=== PATIENT | female | born 1995 | race Caucasian/White ===

== ENCOUNTER 2023-08-12 14:46 | Outpatient (AMB) | payer OTHER, SELFPAY ==
--- NOTE | 2023-08-12 15:17 | AM.OFFWIN_ITS ---
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 Was not present all winter but has since returned about a month ago Endorses clear watery discharge from the area She has been applying triamcinolone ointment without improvement Denies fevers, chills, nausea, vomiting, diarrhea, headache, dizziness, weakness Review of Systems Const All systems reviewed & are unremarkable except as noted in HPI and below Physical Exam Vital Signs: Last Vital Signs Pulse 80 08/12/23 15:24 BP 126/82 08/12/23 15:24 Pulse Ox 99 08/12/23 15:24 Oxygen Delivery Method Room Air 08/12/23 15:24 BMI result Body Mass Index 24.1 General: awake, alert, oriented. Answers questions appropriately. Fully engaged in examination. Skin: warm, dry, intact HEENT: Normocephalic. Right retroauricular area: dry, flaking red patches, yellow crusty flakes Cardiac: External chest normal in appearance. Respiratory: No cough, audible wheezing or stridor. Abdomen: without gross distension. Soft, nontender. No guarding MS: No obvious swelling or deformities. Neurological: Oriented to person, place, time and situation. Thought process intact. Psychiatric: Appropriate mood and affect. Good judgment and insight. Assessment & Plan Assessment & Plan (1) Dermatitis: Code(s): L30.9 - Dermatitis, unspecified Plan Ketoconazole 2% topical. Apply twice daily as directed Follow up with dermatology if no improvement Follow up with PCP or return here for any new or worsening symptoms Medications: New ketoconazole 2% Apply a thin layer to affected area with fingertips. Do not wash affected area for at least 3 hours after application; wait at least 20 minutes after hao lication before applying makeup or sunscreen to the treated areas. 1 appl topical BID 30 grams 1RF Coding Level of Care Code Est Pt Level 3 (85073) Diagnoses Dermatitis L30.9
[2023-08-12 15:24] VITALS: BP 126/82; PULSE 80; O2SAT 99; BMI 24.1
== END 2023-08-12 16:11 | disposition home or self-care (01) ==
PROVIDERS: Visit Provider Registered Nurse Emergency
DX: L30.9 Dermatitis, unspecified (principal)
CPT/HCPCS: 99213

== ENCOUNTER 2024-04-21 14:50 | Outpatient (REF) | payer OTHER, SELFPAY ==
[2024-04-21 16:18] LABS: Appearance Urine Clear; Color Urine Yellow; Glucose Urine UA Negative (Negative); Leukocyte Esterase Urine Negative (Negative); Nitrite Urine Negative (Negative); PH 5.5 (5.0-9.0); Specific Gravity - Urine 1.025 (1.005-1.025); Urine Blood Negative (Negative); Urine Ketones Negative (Negative); Urine Protein Negative (Neg-Trace)
[2024-04-21 16:52] LABS: Bacteria Urine None Seen (None Seen); Hyaline Casts Urine 0-2 /LPF (0-2); RBC Urine 0-2 /HPF (0-2); Squamous Epithelial Cell Urine 0-2 /HPF (0-2); WBC Urine 0-5 /HPF (0-5)
== END 2024-04-21 14:51 | disposition home or self-care (01) ==
LOC: HO.HMGCLNP 14:50
PROVIDERS: PCP Internal Medicine; Visit Provider Internal Medicine
DX: R30.0 Dysuria (principal)
CPT/HCPCS: 81001; 87086

== ENCOUNTER 2024-04-22 16:05 | Outpatient (REF) | payer OTHER, SELFPAY ==
--- NOTE | ~2024-04-22 | US_ITS ---
EXAMINATION: US PELVIS CLINICAL INFORMATION: Right pelvic pain COMPARISON: None available. TECHNIQUE: Ultrasound of the pelvis is performed using both transabdominal and transvaginal transducers along with Doppler. Transvaginal imaging is performed due to inadequate visualization transabdominally. FINDINGS: Uterus: The uterus is anteverted, anteflexed and measures 8.8 x 3.0 x 3.8 cm. The double wall endometrial thickness is 2.0 mm. The uterus is smooth in contour and has normal myometrial echogenicity. No visible fibroid. Adnexa: Both ovaries are visualized. There is normal color flow to the adnexa. There is no ovarian torsion. There is no pelvic ascites or fluid collection. Right ovary measures 7.6 x 4.9 x 8.2 . There is simple anechoic cyst measuring 7.2 x 4.5 x 7.7 cm. Left ovary measures 3.6 x 1.9 x 2.0 cm. Volume 6.9 mL. It appears unremarkable. US/US pelvic and transvaginal IMPRESSION: Simple right ovarian cyst. Unremarkable left ovary and uterus. Electronically signed by: Bairon Harris MD 04/23/2024 07:14 AM EST
== END 2024-04-22 16:06 | disposition home or self-care (01) ==
LOC: HO.US 16:05
PROVIDERS: PCP Internal Medicine; Visit Provider Internal Medicine
DX: R10.2 Pelvic and perineal pain (principal)
CPT/HCPCS: 76830; 76856

== ENCOUNTER → 2024-04-22 16:09 | Outpatient (BNV) | payer OTHER, SELFPAY | PROVIDERS: PCP Internal Medicine; Visit Provider Radiology Diagnostic Radiology | DX: N83.201 Unspecified ovarian cyst, right side (principal) | CPT/HCPCS: 76830; 76856 ==

== ENCOUNTER 2024-04-23 08:07 | Outpatient (REF) | payer OTHER, SELFPAY ==
[2024-04-23 19:23] LABS: Bacterial Vaginosis PCR NEGATIVE (Negative); Candida Group PCR NOT DETECTED (Not Detect); Candida glab krusei PCR NOT DETECTED (Not Detect); Trichomonas vaginalis PCR NOT DETECTED (Not Detect)
== END 2024-04-23 08:08 | disposition home or self-care (01) ==
LOC: HO.LAB 08:07
PROVIDERS: PCP Internal Medicine; Visit Provider Advanced Practice Midwife
DX: N89.8 Other specified noninflammatory disorders of vagina (principal)
CPT/HCPCS: 81515

== ENCOUNTER 2024-04-23 08:07 | Outpatient (AMB) | payer OTHER, SELFPAY ==
--- NOTE | 2024-04-23 08:10 | MHC.OFFVIS ---
Intake Visit Reasons: pelvic pain Product Support Technician: Product Support Technician Present (Amie) Allergies amoxicillin Allergy (Verified 04/23/24 08:17) Hives HPI Comments Details: Patient presents to the office this morning with concerns of a ongoing lower right side pelvic pain 5/10 pain level for the last 5 days. She reports she has a high tolerance to pain. Recent ultrasound ordered by her primary care reviewed. Urinalysis and culture were negative 04/21/24. Current OCP user. [facility] Medical History (Updated 04/23/24 @ 16:07 by Eva Valentin CNM) Ovarian cyst Review of Systems Const All systems reviewed & are unremarkable except as noted in HPI and below Physical Exam Const General: cooperative, healthy appearing and no acute distress Orientation/consciousness: patient oriented x3 GI Inspection: Yes normal to inspection Palpation (GI): Soft to palpation and Other GI palpation findings present (Nontender) Rectal Exam - Female: visual inspection normal General: Yes bladder normal to palpation External Female Exam: normal appearance of the urethra Speculum Exam - Vagina: normal appearance of the vagina, normal palpation and normal vaginal discharge Speculum Exam - Cervix: normal appearance of the cervix and normal palpation Bimanual exam- vagina & uterus: normal bimanual exam, normal palpation, uterine size normal, bladder normal to palpation, normal palpation, uterine shape normal and non-tender Bimanual Exam- Adnexa, other: tender (Fullness on right side) on the right Neuro General: patient oriented x3 Results Reviewed Results Reviewed: [place] [id number] Ultrasound Report Signed Patient: Chelsea Higgins MR#: [id number] : 1995 Acct:[id number] Age/Sex: 29 / F ADM Date: 04/22/24 Loc: HO.US Attending Dr: Susanna Sheffield MD Ordering Physician: Susanna Sheffield MD Date of Service: 04/22/24 Procedure(s): US pelvic and transvaginal Accession Number(s): [id number] cc: Susanna Sheffield MD~ EXAMINATION: US PELVIS CLINICAL INFORMATION: Right pelvic pain COMPARISON: None available. TECHNIQUE: Ultrasound of the pelvis is performed using both transabdominal and transvaginal transducers along with Doppler. Transvaginal imaging is performed due to inadequate visualization transabdominally. FINDINGS: Uterus: The uterus is anteverted, anteflexed and measures 8.8 x 3.0 x 3.8 cm. The double wall endometrial thickness is 2.0 mm. The uterus is smooth in contour and has normal myometrial echogenicity. No visible fibroid. Adnexa: Both ovaries are visualized. There is normal color flow to the adnexa. There is no ovarian torsion. There is no pelvic ascites or fluid collection. Right ovary measures 7.6 x 4.9 x 8.2 . There is simple anechoic cyst measuring 7.2 x 4.5 x 7.7 cm. Left ovary measures 3.6 x 1.9 x 2.0 cm. Volume 6.9 mL. It appears unremarkable. US/US pelvic and transvaginal IMPRESSION: Simple right ovarian cyst. Unremarkable left ovary and uterus. Electronically signed by: Bairon Harris MD 04/23/2024 07:14 AM [facility] Dictated By: Bairon Harris MD Signed By: <Electronically signed by Bairon Harris MD in OV> 04/23/24 0714 DD/ 1626 TD/TT: 04/22/24 1638 Screening Representative: MELODY Assessment & Plan Assessment & Plan (1) Ovarian cyst: Code(s): N83.209 - Unspecified ovarian cyst, unspecified side Category: Medical Qualifiers: Laterality: right Qualified Code(s): N83.201 - Unspecified ovarian cyst, right side (2) Pelvic pain: Code(s): R10.2 - Pelvic and perineal pain Category: Medical Plan Reviewed ultrasound discussed large ovarian cyst findings on the right, risk of ovarian torsion need for evaluation at [facility] now, no current marketing database coordinator [place] [facility] [place]. BV panel obtained. Declined GC chlamydia. The patient expressed understanding and agreement with the plan of care. All of her questions and concerns were addressed to the best of my ability. This note is constructed using voice recognition software. While every effort has been made to ensure accuracy, marketing database coordinator errors may have been included. Orders: Orders Bacterial Vaginosis Panel Today N89.8 - Other specified noninflammatory disorders of vagina Coding Level of Care Code New Pt Level 3 (66874) Diagnoses Cyst of right ovary N83.201 Laterality: right Pelvic pain R10.2
== END 2024-04-23 08:34 | disposition home or self-care (01) ==
LOC: HO.HWS 08:07
PROVIDERS: PCP Internal Medicine; Visit Provider Advanced Practice Midwife
DX: N83.201 Unspecified ovarian cyst, right side (principal); R10.2 Pelvic and perineal pain
CPT/HCPCS: 99203; 99459

== ENCOUNTER 2024-04-29 13:12 | Outpatient (AMB) | payer OTHER, SELFPAY ==
--- NOTE | 2024-04-29 13:13 | MHC.OFFWIV ---
Intake Vital Signs 04/29/24 13:17 BP 120/82 Blood Pressure Location Rt brachial Position Sitting Pulse 112 H Pulse Source Pulse Oximeter Temp 98.7 F Temp Source Oral Pulse Oximetry (%) 98 Oxygen Delivery Method Room Air Intake Visit Reasons: EP-flu symptoms Intake Note: Patient here for dry cough, sore throat, fevers, headache that started yesterday. She was recently in the hospital and her boyfriend just tested positive for the Flu Patient Tobacco Use Status: Never used Tobacco Allergies amoxicillin Allergy (Verified 04/29/24 13:17) Hives Do you need a note to return to daycare/school/sports/work: Yes HPI HPI Comments History of Present Illness Details She presents to office for flu symptoms She had ovaria surgery on ; healing well Was with significant other and her boyfriend + flu A since Saturday Onset yesterday + dry cough, scratchy throat, fever, headache and body aches No call to surgeon Normal urination, incisions looks good Currently menstuation She has taken Ibuprofen at baseline. Did oxycodone for 2 night. No CP or SOB PFSH Medical History (Updated 04/29/24 @ 13:48 by Chelsea Chaparro PA-C) Ovarian cyst Social History Patient Tobacco Use Status: Never used Tobacco Review of Systems Const Reports body aches, Reports chills, Reports fatigue, Reports fever(s), Reports headache(s) and Reports poor appetite Eyes Denies change in vision ENT Denies dizziness, Reports headache(s), Reports nasal congestion and Reports sore throat Card Denies chest pain, Denies syncope and Denies dyspnea Resp Reports cough and Denies dyspnea GI Denies abdominal pain, Denies constipation, Denies diarrhea, Denies nausea and Denies vomiting Denies dysuria and Denies urinary urgency Musc Reports myalgias Skin/Breast Reports other (incisions healing well) Neuro Denies dizziness, Denies syncope and Reports headache(s) Endo Reports fatigue Physical Exam Vital Signs: Last Vital Signs Temp 98.7 F 04/29/24 13:17 Pulse 112 H 04/29/24 13:17 BP 120/82 04/29/24 13:17 Pulse Ox 98 04/29/24 13:17 Oxygen Delivery Method Room Air 04/29/24 13:17 General: Non-toxic, NAD. Speaking full sentences. Skin: Warm dry throughout Eye: EOMI HENT: Airway patent. Uvula midline. No pharyngeal erythema or edema. 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 +rhinorrhea Bilateral canals clear. TM non-erythematous, non-bulging. No TM perforation or hemotympanum noted. Respiratory: CTA bilaterally. No wheezes, rales or rhonchi Cardiac: tachycardic. No murmur Abdomen: Abdomen non-distended. Surigical incisions dry, without wound dehiscence or erythema. BS present. Non-tender to light palpation MSK: Full ROM extremities. Neurology: Alert. No aphasia or facial droop. Gait without abnormality Psych: Good mood and affect Assessment & Plan Assessment & Plan (1) Influenza-like illness: Code(s): J11.1 - Influenza due to unidentified influenza virus with other respiratory manifestations Plan: Patient seen and evaluated. Lungs CTA Abdomen is soft, non-distended and not acute Influenza, flu and covid swab obtained Tylenol/Ibuprofen for discomfort Increase fluids and bland diet Patient gave verbal understanding and had no additional questions or concerns at time of discharge All questions answered Coding Level of Care Code Est Pt Level 3 (40845) Diagnoses Influenza-like illness J11.1
[2024-04-29 13:17] VITALS: BP 120/82; PULSE 112; TEMP 37.1; O2SAT 98
--- OUTSIDE RECORDS SUMMARY | 2024-04-29 15:18 | XMS_ITS | Continuity of Care Document ---
Author Organization [facility] ter Address [address] [place] [id number]- Care Team Providers [employer] Manager Name Role Phone Nettie RESTREPO, Susanna Villar Primary Care Physician Encounter [facility] Date(s): 04/23/24 - 04/24/[address] [id number] Encounter Diagnosis Other ovarian cyst, right side(Final) - 04/23/24 Discharge Disposition: A-D/C Home Attending Physician: Moreno RESTREPO, Jarred Moreno Admitting Physician: Jarred Mayer MD Referring Physician: Not on Staff, Referring MD Encounter Type: Disch Obv Allergies, Adverse Reactions, Alerts Substance Criticality Severity Reaction Reaction Severity Status amoxicillin Hives Active Immunizations Given and Recorded Vaccine Date Status Refusal Reason SARS-CoV-2 (COVID-19) mRNA-1273 vaccine 02/01/21 R ecorded SARS-CoV-2 (COVID-19) mRNA-1273 vaccine 04/25/20 R ecorded SARS-CoV-2 (COVID-19) mRNA-1273 vaccine 03/28/20 R ecorded influenza virus vaccine, inactivated 01/17/21 Cristian rded hepatitis B pediatric vaccine 04/07/15 Recorded Medications acetaminophen 325 mg oral capsule 2 capsule = 650 mg, By Mouth, Every 6 hours, PRN as needed for pain, For acute cause, 90 day supplynot indicated not to exceed 4000 mg/day, # 60 capsule, 0 Refills, Acute 06/26/24 9:00:00 PM EDT, 04/23/24 8:49:00 PM EST, Capsule, [facility]/pharmacy #[id number], Partial fill upon patient request if the prescription is for a schedule II opioid drug., 165, cm, 04/23/24 20:21:00 EST, Height, 68.5, kg, 04/23/24 17:26:00 EST, Dry Weight Start Date: 04/23/24 Stop Date: 06/26/24 Status: Ordered Quantity: 60.0 Unit: capsule Repeat number: 1 acetaminophen 500 mg oral capsule 2 capsule = 1,000 mg, By Mouth, Every 6 hours, PRN for fever, not to exceed 4000 mg/day, # 30 capsule, 0 Refills, Maintenance, 10/30/19 6:10:00 AM EDT, Capsule, [facility], 165, cm, 10/30/19 2:45:00 EDT, Height, 63.4, kg, 10/30/19 2:45:00 EDT, Dry Weight Start Date: 10/30/19 Status: Ordered Quantity: 30.0 Unit: capsule Repeat number: 1 busPIRone 15 mg oral tablet 1 tablet = 15 mg, By Mouth, 2 times a day, 0 Refills, Maintenance, 10/30/19 2:47:00 AM EDT Start Date: 10/30/19 Status: Ordered Repeat number: 1 docusate sodium 100 mg oral capsule 100 mg, 1, capsule, By Mouth, 2 times a day, PRN, # 60 capsule, Refills 0, Tot. Refills 0, Maintenance, for constipation, 04/23/24 8:50:00 PM EST, Route to Pharmacy Electronically, [facility]/pharmacy #[id number],Partial fill upon patient request if the prescription is for a schedule II opioid drug., 165, cm, 04/23/24 20:21:00 EST, Height, 68.5, kg, 04/23/24 17:26:00 EST, Dry Weight Start Date: 04/23/24 Status: Ordered Quantity: 60.0 Unit: capsule Repeat number: 1 ibuprofen 600 mg oral tablet 600 mg, 1, tablet, By Mouth, Every 6 hours, PRN, For acute cause, 90 day supply not indicated not to exceed 3200 mg/day with food or milk, # 60 tablet, Refills 0, Tot. Refills 0, Acute 06/26/24 9:00:00 PM EDT, Pain , Mild, 04/23/24 8:49:00 PM EST, [facility]ically[id number] fill upon patient request if the prescription is for a schedule II opioid drug., 165, cm, 04/23/24 20:21:00 EST, Height, 68.5, kg, 04/23/24 17:26:00 EST, Dry Weight Start Date: 04/23/24 Stop Date: 06/26/24 Status: Ordered Quantity: 60.0 Unit: tablet Repeat number: 1 ibuprofen 600 mg oral tablet 600 mg, 1, tablet, By Mouth, Every 6 hours, PRN, not to exceed 3200 mg/day with food or milk, # 20 tablet, Refills 0, Tot. Refills 0, Maintenance, Temperature, 10/30/19 6:09:00 AM EDT, Route to Pharmacy Electronically, [facility], 165, cm, 10/30/19 2:45:00 EDT, Height, 63.4, kg, 10/30/19 2:45:00 EDT, Dry Weight Start Date: 10/30/19 Status: Ordered Quantity: 20.0 Unit: tablet Repeat number: 1 oxyCODONE 5 mg oral tablet See Instructions, PRN, 1 tablet By Mouth Every 6 hours prn pain that is not controlled by Ibuprofenand acetaminophen, # 7 tablet, Refills 0, Tot. Refills 0, Acute 05/29/24 9:00:00 PM EST, as needed for pain, 04/23/24 8:49:00 PM EST, Instructions Replace Required Details, [facility], [id number], Partial fill upon patient request if the prescription is for a schedule IIopioid drug., 165, cm, 04/23/24 20:21:00 EST, Height, 68.5, kg, 04/23/24 17:26:00 EST, Dry Weight Start Date: 04/23/24 Stop Date: 05/29/24 Status: Ordered Quantity: 7.0 Unit: tablet Repeat number: 1 sertraline 100 mg oral tablet 2 tablet = 200 mg, By Mouth, Daily, 0 Refills, Maintenance, 10/30/19 2:46:00 AM EDT Start Date: 10/30/19 Status: Ordered Repeat number: 1 Toradol Inj 15 mg, Injection, IV Push Slowly, 04/24/24 12:00:00 AM EST, Stop date 04/24/24 1:26:42 AM EST Start Date: 04/24/24 Stop Date: 04/24/24 Status: Completed Repeat number: 1 Tri-Sprintec oral tablet 1 tablet, By Mouth, Daily, # 28 tablet, 0 Refills, Maintenance, 08/12/18 5:10:10 PM EDT, Tablet Start Date: 08/12/18 Status: Ordered Quantity: 28.0 Unit: tablet Repeat number: 1 Problem List Condition Confirmation Course Effective Dates Status Health St atus Informant Anxiety Confirmed Active Galactorrhea Confirmed Active OCD (obsessive compulsive disorder) Confirmed Active Results Radiology Reports * Exam Date Time Procedure Performing Provider Status 04/23/24 1:41 PM US Pelvic Doppler Comp Vilma Bingtano e; Auth (Verified) Notes: (US Pelvic Doppler Comp) Reason For Exam: Pelvic Pain;Other: RESULT: US Pelvic Doppler Comp US Pelvic Transabdominal, US Pelvic Transvaginal, US Pelvic Doppler Comp Hx of Present Illness: lower abd pain + bilat ovarian cyst per US that was done today; Reason: Pelvic Pain; Clinical Question(s): TOA. Patient reports ultrasound performed at an outside facility demonstrated a greater than 7 cm right ovarian cyst. COMPARISON: 10/11/2022. TECHNIQUE: Transabdominal and transvaginal pelvic ultrasound with grayscale, color Doppler, and spectral Doppler analysis. FINDINGS: UTERUS: Size: 8.7 x 3.0 x 5.0 cm, volume 69.0 cc. Endometrial thickness: 0.3 cm. Morphology: Normal configuration and echotexture. RIGHT OVARY: Size: 8.2 x 6.4 x 7.7 cm, volume 209.3 cc. Morphology: Large cyst measuring 7.6 x 6.0 x 7.1 cm. Normal arterial and venous waveforms identified in the peripheral ovary. LEFT OVARY: Size: 3.1 x 1.8 x 2.4 cm, volume 7.2 cc. Morphology: Normal echotexture. No pathologic cysts or mass. Normal arterial and venous waveforms. ADNEXA: Normal. No adnexal masses or fluid collections. IMPRESSION: Right ovarian cyst measuring up to 7.6 cm. O-RADS Category 2 (Almost certainly benign). Recommend follow-up US in 12 months or earlier as directed by clinical factors. Reference: ACR O-RADS US v2022. https://pubs.rsna.org/doi/10.1148/radiol.334409 Normal uterus and left ovary. WSN: [id number] Ordering Physician: Raphael Valencia Dictated By: John Fonseca MD Dictated Date/Time: 04/23/24 2:23 pm Reviewed By: John Fonseca MD Signed By: John Fonseca MD Signed Date/Time: 04/23/24 2:23 pm Transcribed By: LORI Transcribed Date/Time: 04/23/24 2:06 pm * Exam Date Time Procedure Performing Provider Status 04/23/24 1:41 PM US Pelvic Transvaginal Horn , Catherin e; Auth (Verified) Notes: (US Pelvic Transvaginal) Reason For Exam: Pelvic Pain;Other: RESULT: US Pelvic Transvaginal US Pelvic Transabdominal, US Pelvic Transvaginal, US Pelvic Doppler Comp Hx of Present Illness: lower abd pain + bilat ovarian cyst per US that was done today; Reason: Pelvic Pain; Clinical Question(s): TOA. Patient reports ultrasound performed at an outside facility demonstrated a greater than 7 cm right ovarian cyst. COMPARISON: 10/11/2022. TECHNIQUE: Transabdominal and transvaginal pelvic ultrasound with grayscale, color Doppler, and spectral Doppler analysis. FINDINGS: UTERUS: Size: 8.7 x 3.0 x 5.0 cm, volume 69.0 cc. Endometrial thickness: 0.3 cm. Morphology: Normal configuration and echotexture. RIGHT OVARY: Size: 8.2 x 6.4 x 7.7 cm, volume 209.3 cc. Morphology: Large cyst measuring 7.6 x 6.0 x 7.1 cm. Normal arterial and venous waveforms identified in the peripheral ovary. LEFT OVARY: Size: 3.1 x 1.8 x 2.4 cm, volume 7.2 cc. Morphology: Normal echotexture. No pathologic cysts or mass. Normal arterial and venous waveforms. ADNEXA: Normal. No adnexal masses or fluid collections. IMPRESSION: Right ovarian cyst measuring up to 7.6 cm. O-RADS Category 2 (Almost certainly benign). Recommend follow-up US in 12 months or earlier as directed by clinical factors. Reference: ACR O-RADS US v2022. https://pubs.rsna.org/doi/10.1148/radiol.731648 Normal uterus and left ovary. WSN: [id number] Ordering Physician: Raphael Valencia Dictated By: John Fonseca MD Dictated Date/Time: 04/23/24 2:23 pm Reviewed By: John Fonseca MD Signed By: John Fonseca MD Signed Date/Time: 04/23/24 2:23 pm Transcribed By: LORI Transcribed Date/Time: 04/23/24 2:06 pm * Exam Date Time Procedure Performing Provider Status 04/23/24 1:41 PM US Pelvic Transabdominal Horn , Cather ine; Auth (Verified) Notes: (US Pelvic Transabdominal) Reason For Exam: Pelvic Pain;Other: RESULT: US Pelvic Transabdominal US Pelvic Transabdominal, US Pelvic Transvaginal, US Pelvic Doppler Comp Hx of Present Illness: lower abd pain + bilat ovarian cyst per US that was done today; Reason: Pelvic Pain; Clinical Question(s): TOA. Patient reports ultrasound performed at an outside facility demonstrated a greater than 7 cm right ovarian cyst. COMPARISON: 10/11/2022. TECHNIQUE: Transabdominal and transvaginal pelvic ultrasound with grayscale, color Doppler, and spectral Doppler analysis. FINDINGS: UTERUS: Size: 8.7 x 3.0 x 5.0 cm, volume 69.0 cc. Endometrial thickness: 0.3 cm. Morphology: Normal configuration and echotexture. RIGHT OVARY: Size: 8.2 x 6.4 x 7.7 cm, volume 209.3 cc. Morphology: Large cyst measuring 7.6 x 6.0 x 7.1 cm. Normal arterial and venous waveforms identified in the peripheral ovary. LEFT OVARY: Size: 3.1 x 1.8 x 2.4 cm, volume 7.2 cc. Morphology: Normal echotexture. No pathologic cysts or mass. Normal arterial and venous waveforms. ADNEXA: Normal. No adnexal masses or fluid collections. IMPRESSION: Right ovarian cyst measuring up to 7.6 cm. O-RADS Category 2 (Almost certainly benign). Recommend follow-up US in 12 months or earlier as directed by clinical factors. Reference: ACR O-RADS US v2022. https://pubs.rsna.org/doi/10.1148/radiol.633653 Normal uterus and left ovary. WSN: [id number] Ordering Physician: Raphael Valencia Dictated By: John Fonseca MD Dictated Date/Time: 04/23/24 2:23 pm Reviewed By: John Fonseca MD Signed By: John Fonseca MD Signed Date/Time: 04/23/24 2:23 pm Transcribed By: LORI Transcribed Date/Time: 04/23/24 2:06 pm Vital Signs Most recent to oldest [Reference Range]: 1 2 3 Height 165 cm (04/24/24 6:42 AM) 165 cm (04/24/24 2:47 AM) 165 cm (04/23/24 8:21 PM) Weight 68.5 kg (04/23/24 8:21 PM) 68.5 kg (04/23/24 5:26 PM) 68.5 kg (04/23/24 12:40 PM) Oxygen Saturation [94-100 %] 100 % (04/24/24 6:42 AM) 98 % (04/24/24 2:47 AM) 96 % (04/24/24 12:30 AM) Pulse Rate [55-90 bpm] 70 bpm (04/24/24 6:42 AM) 107 bpm *H* (04/24/24 2:47 AM) 93 bpm *H* (04/23/24 8:21 PM) Body Mass Index [18.5-24.99 kg/m2] 25.16 kg/m2 *H* (04/23/24 8:21 PM) 25.16 kg/m2 *H* (04/23/24 5:26 PM) 25.16 kg/m2 *H* (04/23/24 12:40 PM) Blood Pressure [90-138/55-84 mm Hg] 117/57mm Hg (04/24/24 6:42 AM) 137/74mm Hg (04/24/24 2:47 AM) 129/81mm Hg (04/24/24 12:30 AM) Respiratory Rate [16-30 br/min] 20 br/min (04/24/24 6:42 AM) 18 br/min (04/24/24 2:47 AM) 17 br/min (04/24/24 1:52 AM) Temperature [96.8-100.4 DegF] 97.9 DegF (04/24/24 6:42 AM) 97.7 DegF (04/24/24 2:47 AM) 97.7 DegF (04/24/24 12:30 AM) Liters per Minute 6 L/min (04/23/24 11:15 PM) Mode of Delivery (Oxygen) Room air (04/24/24 6:42 AM) Room air (04/24/24 2:47 AM) Room air (04/24/24 12:30 AM) Blood pressure sites Arm, right (04/24/24 6:42 AM) Arm, right (04/24/24 2:47 AM) Arm, right (04/24/24 12:30 AM) Temperature Route Oral (04/24/24 6:42 AM) Oral (04/24/24 2:47 AM) Temporal (04/24/24 12:30 AM) Dry Weight 68.5 kg (04/23/24 5:26 PM) 68.5 kg (04/23/24 12:40 PM) 68.5 kg (04/23/24 9:42 AM) Weight Obtained Via Patient/family stated (04/23/24 9:42 AM) Dry Weight Obtained Via Patient/family stated (04/23/24 9:42 AM) Social History Social History Type Response Tobacco Use: pt denies. Sex Female Sex Representation Female (finding) History and physical note * Haley Tamayo MD: PERFORM Event Display: History and Physical Hospital Authored Date: [id number] Patient: ??RAMU ELDER ? Age:??29 Years?Sex:??Female?:??1995?? History of Present Illness Ramu is a??29-year-old G0??who presents today for 2 to 3 weeks of right lower quadrant pain and known right adnexal cyst on outside imaging. ?? She has been taking tylenol and ibuprofen for the pain which have lost effectiveness. She states that this pain??has progressively worsened over the past several weeks.?? She has also been having urinary frequency??and??pressure with urination.?? She was tested for a UTI??in [place] and??that testing was negative, as is her urinalysis today.?? She now states the pain is??[facility]and makes her extremely uncomfortable. ??She has a constant dull aching pain, as well as an intermittently stabbing pain.?? Currently??her pain is approximately 6 out of 10??after receiving 6 mg of morphine here in the emergency department. ?? She has a history of a left??ovarian cyst which self resolved??a few years ago.? She works at [employer], and spoke to a provider there who recommended she present here for cyst drainage.? Her surgical??history is notable for??a laparoscopic??cholecystectomy and laparoscopic??appendectomy.?? She does not believe that her appendix had ruptured prior to surgery. ?? Her daily medications include sertraline, buspirone, valacyclovir.?? She also takes??a combined oral contraceptive pill??for abnormal uterine bleeding, but cannot recall??which one she is currently on. Physical Exam Vitals & Measurements T:??98.2?F?? HR:??91??(Peripheral)?? RR:??19?? BP:??124/67?? SpO2:??98%?? HT:??165??cm?? WT:??68.5??kg?? BMI:??25.16?? General:??pleasant, alert, cooperative, tearful at times Cardiac:??Regular rate. Warm and well perfused extremities. Respiratory:??Normal work of breathing Abdominal:??Soft, moderately tender to deep palpation in right lower quadrant, non-distended. No masses or??organomegaly appreciated. No guarding or rebound. Bimanual:??Cervix closed,??small, anteverted and mobile uterus. No CMT. Right adnexal fullness??andmoderate tenderness. Extremities:??Symmetrical muscle bulk, no visible erythema or edema.?? Psych:??Mood and affect stable, appearance appropriate, good eye contact, talkative Assessment/Plan Assessment:??Ramu is a??29-year-old G0??who presents today for 2 to 3 weeks of right lower quadrantpain and known right adnexal cyst on outside imaging. Today,??imaging confirms the presence of a simple appearing 7 cm right adnexal cyst.??On exam patient??is moderately tender without rebound or guarding.??No concerns for an acute abdomen at this time.??Her vital signs are stable. ?? We did discussed with the patient that??our recommendation would be??pain management and??observation at this time.??We discussed that the cyst appears physiologic, and does not appear to be torsed thing at this time.??We reviewed the likelihood that the cyst will??spontaneously rupture and resolve. ?? The patient??feels strongly that??she would like surgical management in order??to??control her pain??and prevent an emergent surgery.??She??states that??she has quite a high pain tolerance and that the amount of pain she is in right now is??not sustainable for her.??We had a long discussion about the risks of surgical management of this cyst,??including??risks of anesthesia, blood loss,??possibleneed for removal of her right ovary, and damage to pelvic organs.??Patient expressed understanding.??She does desire future childbearing.??After our discussion we signed a consent form together??for l aparoscopic right ovarian cystectomy??with possible right oophorectomy.??The patient has been addedonto the main OR??for this evening??with Dr. Velazco. ?? Patient seen and discussed with Dr. Mayer, MANAGER GENERAL attending. ?? Other ovarian cyst, right side (N83.291):? Simple appearing 7 cm adnexal cyst Patient declines medical management at this time Consented for laparoscopic cystectomy NPO since 1500 Added on the [facility] OR schedule IV toradol for pain? Patient seen and discussed with Dr. Mayer, MANAGER GENERAL attending. OB History History?(0,0,0,0)?No previous pregnancies history have been recorded Active Problem List Active Problem List Anxiety: (Medical) Choledocholithiasis: (Medical) Galactorrhea: (Medical) OCD (obsessive compulsive disorder): (Medical) Procedure/Surgical History Mass at the left lateral chest wall.: 11/09/21 Laparoscopic cholecystectomy: 11/24/18 ERCP: 11/23/18 Appendectomy: 03/24/13 Laparoscopic appendectomy, single incision: 03/24/13 Home Medications Acetaminophen: 1,000 mg = 2 capsule, By Mouth, Every 6 hours, PRN (for fever), not to exceed 4000 mg/day BusPIRone: 15 mg = 1 tablet, By Mouth, 2 times a day Ethinyl Estradiol-Norgestimate: 1 tablet, By Mouth, Daily Ibuprofen: 600 mg = 1 tablet, By Mouth, Every 6 hours, PRN (Temperature), not to exceed 3200 mg/daywith food or milk Sertraline: 200 mg = 2 tablet, By Mouth, Daily Allergies amoxicillin??(Hives) Social History Alcohol Use: Current. Frequency: 1-2 times per month. Electronic Cigarette/Vaping Electronic Cigarette Use: Never. Employment/School Status: Employed. 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 Exercise Regular exercise: Yes. Exercise duration: 45. Exercise frequency: 5-6 times/week. Exercise type: Treadmill, Walking. Home/Environment Living situation: Home/Independent. Lives with: Alone. Nutrition/Health Diet: Regular. Caffeine intake amount: 1 coffee daily. Sexual Sexually involved in last 6 months: Yes. Substance Abuse Use: Current. Type: Marijuana. Other: Editables. Tobacco Use: pt denies. Family History Father: Hypertension Pat. Grandfather: Diabetes mellitus type II Mat. Grandmother: Cancer of ovary * Moreno RESTREPO, Jarred Moreno: PERFORM Event Display: History and Physical Hospital Authored Date: Attending Attestation:??I have seen and evaluated this patient. ??I have discussed the case and itsmanagement with the resident and agree with the findings and plan as documented in the resident???snote. As noted above, we had an extensive discussion regarding her diagnosis, NH of ovarian cysts, R vs Bof usual management with observation and pain control compared with R vs B of surgical management,?? Discussed that simple drainage as referring provider is not??recommended except for specific cases. She expresses understanding of the recommendations and states she has considered options and wishesto proceed with surgical management.?? Case reviewed with ??Juan A,??covering physician.?? Hospital Progress note * Caridad Javier RN: PERFORM, MODIFY, MODIFY, SIGN, VERIFY Event Display: Progress Note Hospital Authored Date: [id number] Patient: RAMU ELDER Age: 29 years Sex: Female : 1995 Associated Diagnoses: None Author: Caridad Javier RN Findings Nursing Data Cardiac Data. : Cardiac Data. 04/24/2024 1:27 EST Cardiovascular Symptoms None Skin Temperature Upper Extremities Warm Skin Temperature Lower Extremities Warm Radial Pulse, Left Normal Radial Pulse, Right Normal shelter monitor No Cardiovascular WNL except . Evaluation Patient returned to D3B from OR. Patient is alert and oriented x4. Patient noted to have four laparoscopy sites. Band aids present, clean, dry and intact. No bleeding. Patient reported 7/10 pain to right lower quadrant. Scheduled IV ketorolac administered per MAY. Patient is ambulatory to bathroom.Steady gait. Bed is locked in lowest position. Call camara is within reach. Able to make needs known.Frequent rounding. Please see CIS for full assessment. . Note * Jayde Saleh RN: PERFORM Event Display: Discharge/Transfer Note Hospital Authored Date: [id number] Nursing Discharge Note Entered On: 04/24/2024 11:41 EST Performed On: 04/24/2024 11:29 EST by Jayde Saleh RN Nursing Discharge Note 2 Discharge Time : 04/24/2024 11:30 EST Discharge Level of Care at Discharge : Home/Fci/Foster Care Patient Left Unit Via : Ambulatory Patient Accompanied Off Unit with : Other: self, declined w/c DC Instructions Provided & Signed by Pt : Yes Patient Understands D/C Instructions : Yes Patient Instructions Discharge Signed : Yes Did Pt have Specialty Bed or Wound Vac : No Jayde Saleh RN - 04/24/2024 11:29 EST * Dimple Snowden RN: PERFORM Event Display: Patient Education/Instruction Authored Date: [id number] Inpatient Adult Discharge Instructions. [address] [address] Name: RAMU ELDER : 1995?? Visit: 04/23/2024 09:37?? Current Date: 04/24/2024 10:49 ?? Account: [id number]?? Inpatient Adult Discharge Instructions We would like to thank you for allowing us to assist you with your healthcare needs. The following includes patient education materials and information regarding your injury/illness. Our entire staffstrives to provide an excellent experience for our patients and their families. PLEASE ENSURE YOU FOLLOW-UP PER THE INSTRUCTIONS BELOW! ?? YOUR OPINION IS IMPORTANT TO US! Please complete the survey you may receive by mail or email. Your feedback will be used to make improvements to the healthcare experiences of our patients and their families. Surveys are administered by [employer] ?? If further treatment with your primary care physician or another doctor is recommended, it is important for you to keep the appointment. Call your primary care physician or return to the Emergency Department immediately if your condition worsens, fails to improve, or new symptoms develop. If you need to find a doctor, you can call [facility] Link for a referral at [phone] or toll free at [phone]) or log in to [email or web address].. ?? [facility], in keeping with [facility] guidance, no longer requires face masks for staff, patientsor visitors in most situations. Similiar to time spent indoors at other locations, there is the chance that you were exposed to repiratory viruses during your time with us (such as flu or COVID-19). If you develop symptoms concerning for a viral respiratory infection, please seek testing (and treatment if indicated) from your medical provider or home test kit. ?? You can view and manage your care through the patient portal or by using a health care hao of your choosing. [employer] is a website that allows you to securely view your medical information including your hospital discharge summary, office visit summaries, medications and follow-up visits. You can also request appointments, renew medications, and request access to your medical information using a health care hao of your choosing, or just ask a question. You can enroll at [email or web address] or register during your next office visit. You have been discharged from [facility], Patient Care Unit: D3B??. If you have any questions regarding these instructions, including results of studies pending, afteryou leave, please call us and we will be happy to assist you 22/10. [facility] Your Care Team Attending Physician Moreno RESTREPO, Jarred Moreno?? Consulting Providers Moreno RESTREPO, Jarred Moreno?? Discharging Providers Myrlte Figueroa DO Tests Performed Below is a partial list of the tests performed during your hospitalization. You may have had other tests and procedures not included in this list. Please discuss all test results with your provider. Beta HCG Serum (Females Only) CBC w/ Differential Comprehensive Metabolic Panel Urinalysis w/hold for Urine Culture US Pelvic Doppler Comp US Pelvic Transabdominal US Pelvic Transvaginal Beta HCG Serum (Females Only)?? CBC w/ Differential?? Comprehensive Metabolic Panel?? US Pelvic Doppler Comp?? US Pelvic Transabdominal?? US Pelvic Transvaginal?? Urinalysis w/hold for Urine Culture?? Primary Care Provider Nettie RESTREPO, Susanna Villar? Advance Directive Health Care Proxy on File Yes - Health Care Proxy Discharge Vitals Temperature: 97.9 DegF Height: 165 cm Pulse Rate: 70 bpm Weight: 68.5 kg Respiratory Rate: 20 br/min Body Mass Index:??25.16 kg/m2??High Systolic Blood Pressure: 117 mm Hg Body surface area: 1.77 Diastolic Blood Pressure: 57 mm Hg ?? Oxygen Saturation: 100 % ?? Studies Pending All studies ordered during this hospital stay have been completed unless listed below. Please discuss all pending results with your provider listed above in these instructions. ?? No incomplete studies found?? What to do next Instructions From Your Doctor Please call your doctor if you note any of the following symptoms: - fever of 100.4 or greater - heavy vaginal bleeding - foul-smelling vaginal discharge - difficulty or burning with urination - nausea and vomiting with inability to tolerate food - pain not controlled by your prescribed medications - redness/swelling/drainage at incision(s) - shortness of breath or chest pain ?? In addition, please follow these steps to help your healing process: ?? - Do not drive while taking narcotics. Do not drive until cleared by your doctor. - Avoid lifting anything 15lbs or greater for 2 weeks or until cleared by your doctor. - Do not put anything in the vagina. No intercourse, tampons, or douching??for 8 weeks. - Walk as often as you are able. - Continue your stool softeners (examples: colace/docusate, senna, miralax) until no longer taking narcotics and stools are regular. - Shower as usual after 24 hours. Remove Steri-Strips when they start to peel off, or after 5 days.Do not scrub the incision. Pat the skin dry. ?? Pain Control Instructions: Continue Tylenol and ibuprofen scheduled and only take opiates as prescribed??for breakthrough painin the first few days after you get home.??You may fill less than the prescribed amount, and you should store them in a safe location in a childproof prescription bottle.??Any unused opiates should be returned to a prescription drop-box, such as the one at the [facility]. No one other than you should take your opiates, and you should not use them for anything other than your postoperative pain. You should not drive while taking opiates. ?? Please call the office with pain that is not controlled with this regimen. ?? [facility]??[address] ?? Orders? 04/23/24 22:49:00 EST?? Discharge Medications RAMU ELDER :1995 Visit Date:04/23/2024 Medications: Please continue your medications until treatment is completed or stopped by your provider. Medications not listed below should be discontinued. Discuss any questions related to medications with your provider. What How Much When Instructions Next Dose New Docusate (docusate sodium 100 mg oral capsule) 1 capsule Oral Twice a day as needed for for constipation Pickup at [facility]/pharmacy #[id number] as needed New Oxycodone (oxyCODONE 5 mg oral tablet) See instructions 1 tablet By Mouth Every 6 hours prn pain that is not controlled by Ibuprofen and acetaminophen, As needed for as needed for pain ?? Pickup at [facility]/pharmacy #[id number] as needed Changed Acetaminophen (acetaminophen 325 mg oral capsule) 2 capsule Oral Every 6 hours as needed for as needed for pain For acute cause, 90 day supply not indicated not to exceed 4000 mg/ day ?? Pickup at [facility]/pharmacy #[id number] last dose @ 5am Changed Ibuprofen (ibuprofen 600 mg oral tablet) 1 tab(s) Oral Every 6 hours as needed for Pain , Mild For acute cause, 90 day supply not indicated not to exceed 3200 mg/ day with food or milk ?? Pickup at [facility]/pharmacy #[id number] as needed Unchanged BusPIRone (busPIRone 15 mg oral tablet) 1 tab(s) Oral Twice a day resume as prescribe Unchanged Ethinyl Estradiol-Norgestimate (Tri-Sprintec oral tablet) 1 tab(s) Oral Daily resume as prescribe Unchanged Sertraline (sertraline 100 mg oral tablet) 2 tab(s) Oral Daily resume as prescribe Pharmacy Information [facility]/pharmacy #[id number]: [address], [place] [phone] Prescription Given During Visit Acetaminophen (acetaminophen 325 mg oral capsule) - 2 capsule = 650 mg, By Mouth, Every 6 hours, # 60 capsule, 0 Refills, For acute cause, 90 day supply not indicatednot to exceed 4000 mg/day, [facility]/pharmacy #[id number], [address] [place] [address] [phone]?? Docusate (docusate sodium 100 mg oral capsule) - 1 capsule = 100 mg, By Mouth, 2 times a day, # 60 capsule, 0 Refills, [facility]/pharmacy #[id number], [address] [place] [address] [phone]?? Ibuprofen (ibuprofen 600 mg oral tablet) - 1 tablet = 600 mg, By Mouth, Every 6 hours, # 60 tablet,0 Refills, For acute cause, 90 day supply not indicatednot to exceed 3200 mg/daywith food or milk, [facility]/pharmacy #[id number], [address] [place] [address] [phone]?? Oxycodone (oxyCODONE 5 mg oral tablet) - , # 7 tablet, 0 Refills, 1 tablet By Mouth Every 6 hours prn pain that is not controlled by Ibuprofen and acetaminophen, [facility]/pharmacy #[id number], [address] [place] [address] [phone]?? Laboratory Results Below is a partial list of the most recent Laboratory test results done prior to this discharge. You may have had other tests and procedures not included in this list. Please discuss all test resultswith your provider. Est Creatinine Clearance - 112.31 mL/min (04/23/2024) Beta HCG Serum (Females Only) (04/23/2024) ? ?Blood - <1 mIU/mL CBC w/ Differential (04/23/2024) ???WBC - 6.8 k/mm3???RBC - 4.09 m/mm3???Hgb - 13.9 Gm/dL???Hct - 38.6 %???MCV - 94.4 femtoliters???MCH - 34.0 pg???MCHC - 36.0 Gm/dL???Platelet Count - 332 k/mm3???RDW-SD - 40.7 femtoliters???MPV - 9.2 femtoliters???Nucleated RBC (Automated) - 0.0 #/100 WBC'S???Abs. NRBC - 0.0 k/mm3???Abs. Neut - 4.1 k/mm3???Abs. Lymph - 2.2 k/mm3???Abs. [place] - 0.4 k/mm3???Abs. Eo - 0.1 k/mm3???Abs. Baso - 0.1 k/mm3???Neut % - 60.8 %???Lymph % - 32.0 %???[place] % - 5.5 %???Eos % - 0.7 %???Baso % - 0.7 %???Imm Gran - 0.3 %???Abs. Imm Gran - 0.0 k/mm3 Comprehensive Metabolic Panel (04/23/2024) ???Sodium - 140 mmol/L???Potassium - 4.1 mmol/L???Chloride - 108 mmol/L???Bicarbonate Level - 21 mmol/L???Anion Gap - 11 mmol/L???Glucose Level - 97 mg/dL???BUN - 16 mg/dL???Creatinine-Blood - 0.67 mg/dL???Estimated GFR Creatinine - 122 ML/MIN/1.73 M2???Calcium - 8.8 mg/dL???Protein, Total - 7.1 Gm/ dL???Albumin - 4.3 Gm/dL???AG Ratio - 1.5???Alkaline Phosphatase - 51 units/L???AST (SGOT) - 15 units/L???ALT (SGPT) - 12 units/L???Bilirubin, Total - 0.4 mg/dL Urinalysis w/hold for Urine Culture (04/23/2024) ???Appear/Color, Urine - LIGHT YELLOW???Specific [place], Urine - 1.016???pH, Urine - 5.5???Albumin, Urine - NEGATIVE???Glucose, Urine - NEGATIVE???Ketones, Urine - NEGATIVE???Bilirubin, Urine - NEGATIVE???Hemoglobin, Urine - TRACE???Nitrite, Urine - NEGATIVE???Leukocyte, Urine - NEGATIVE???Urobilinogen - NORMAL? ?WBC's, Urine - <1 /HPF? ?RBC's, Urine - 2 /HPF? ?Hold Urine Culture - Testing available 48 hours from time of collection. You will be contacted within 72 hours with your results. Allergies (NKA means No Known Allergies) amoxicillin??(Hives) Problems Active Problems??(4) Anxiety?? Choledocholithiasis?? Galactorrhea?? OCD (obsessive compulsive disorder)?? Education Materials Below is the list of Educational Leaflet Providered with your Discharge Instructions. Valuables and Belongings I fully understand and agree that [facility] accepts no responsibility for all my personal property including clothing, toilet articles, radios, jewelry, dentures, hearing aids, rings, money, or any other property that is in my possession or is brought to me after admission. I understand certain valuables may be placed in a hospital safe for a short period of time. I understand that the hospital is not liable for loss or damage due to accident, fire, or other natural occurrence while said property is in the safe. I accept full responsibility for any personal property that I keep with me, and will not hold the hospital responsible in case of loss or disappearance. I acknowledge that i have been encouraged to send valuables and belongings home. ?? Date for Pt to Sign Valuables/Belongings: 04/23/24 20:23:00 ?? Valuables & Belongings ?? Clothes Electronic devices Jewelry Monetary Items Personal devices Miscellaneous Medications (Valuables) Valuables at Bedside Pants, Shirt, Undergarments ?? Earrings, Necklace ? Valuables Sent Home ? Valuables Sent to Security ? Valuables Sent to Locker ? Other Discharge Information ? Pulmonary Rehab Status?? Pulmonary Rehab Discharge Status?? Respiratory Rate: 20 br/min ? Common Emergency Awareness Tips IS IT A STROKE? Act FAST and Check for these signs: FACE Does the face look uneven? ARM Does one arm drift down? SPEECH Does their speech sound strange? TIME Call at any sign of stroke ?? Heart Attack Signs Chest discomfort: Most heart attacks involve discomfort in the center of the chest and lasts more than a few minutes, or goes away and comes back. It can feel like uncomfortable pressure, squeezing, fullness or pain. Discomfort in upper body: Symptoms can include pain or discomfort in one or both arms, back, neck, jaw or stomach. Shortness of breath: With or without discomfort. Other signs: Breaking out in a cold sweat, nausea, or lightheaded. Remember, MINUTES DO MATTER. If you experience any of these heart attack warning signs, call to get immediate medical attention! ?? Smoking can increase your chances of developing chronic health problems and can cause harmful effects to other family members in your house. If you smoke, you are strongly encouraged to quit. Please call [facility] [address] Link at [phone] or [phone]-[facility] ([phone]) or log in to [email or web address] for referrals to smoking cessation programs. ?? 986 Suicide & Crisis Lifeline is available 22/10 if you or someone you know needs to find a reason to keep living. By calling 865 you'll be connected to a skilled, trained counselor at a crisis center in your area. INPATIENT DISCHARGE INSTRUCTIONS SIGNATURE KYLEIGH RAMU ELDER Location:[facility] Registration Date and Time:04/23/2024 09:37 EST Primary Care Physician: Nettie RESTREPO, Susanna Villar Attending Physician: Jarred Mayer MD, I RAMU ELDER, have received the above patient education materials/instructions and have verbalized understanding. If ambulance or transport services are being used I further acknowledge being givena choice of service. ?? If you need to contact me, please call me at this number: . Patient/Job Placement Officer Name: Patient/Job Placement Officer Signature: Relationship to Patient: Witness Name/Signature: Date: * Myrtle Figueroa DO: PERFORM Event Display: Discharge/Transfer Note Hospital Authored Date: Patient: ??RAMU ELDER ? Age:??29 Years?Sex:??Female?:??1995?? Admit Date Admission Date: 04/23/2024 Discharge Date 04/23/2024 [facility] Course Ramu is a??29-year-old G0??who presents today for 2 to 3 weeks of right lower quadrant pain and known right adnexal cyst on outside imaging. Today,??imaging confirms the presence of a simple appearing 7 cm right adnexal cyst.?? There was??low concern of torsion based on ultrasound findings and abdominal exam. She was counseled on management options including observation and surgical management. Due to her level of pain, patient elected for surgical management. Consents??were signed and we proceeded to the operating??room. She underwent uncomplicated??laparoscopic lysis??of adhesions, ovarian cystectomy. She was appropriate for discharge home from PACU. Objective/Physical Exam on Day of Discharge Vitals & Measurements T:??98.8?F?? HR:??93??(Peripheral)?? RR:??14?? BP:??141/86?? SpO2:??98%?? HT:??165??cm?? WT:??68.5??kg?? BMI:??25.16?? See admission H&P Assessment/Plan Assessment:??Ramu is a??29-year-old G0??who presents today for 2 to 3 weeks of right lower quadrantpain and known right adnexal cyst on outside imaging. Today,??imaging confirms the presence of a simple appearing 7 cm right adnexal cyst.??There was??low concern of torsion based on ultrasound findings and abdominal exam. She was counseled on management options including observation and surgical management. Due to her level of pain, patient elected for surgical management. Consents??were signed and we proceeded to the operating??room. She underwent uncomplicated??laparoscopic lysis??of adhesions, ovarian cystectomy. She was appropriate for discharge home from PACU. Plan for post op visit in a pproximately 2 weeks. Rx sent to pharmacy.? Other ovarian cyst, right side (N83.291):? s/p ovarian cystectomy Discharge home with outpatient follow up ?? Procedures Performed This Visit Cystectomy Ovarian Laparoscopic Discharge Medications ???Acetaminophen (acetaminophen 325 mg oral capsule)???Acetaminophen (acetaminophen 500 mg oral capsule)???BusPIRone (busPIRone 15 mg oral tablet)???Docusate (docusate sodium 100 mg oral capsule)???Ethinyl Estradiol- Norgestimate (Tri-Sprintec oral tablet)???Ibuprofen (ibuprofen 600 mg oral tablet)???Ibuprofen (ibuprofen 600 mg oral tablet)???Oxycodone (oxyCODONE 5 mg oral tablet)???Sertraline (sertraline 100 mg oral tablet) Immunizations during Hospitalization Vaccine Date Status SARS-CoV-2 (COVID-19) mRNA-1273 vaccine 02/01/2021 Recorded influenza virus vaccine, inactivated 01/17/2021 Recorded SARS-CoV-2 (COVID-19) mRNA-1273 vaccine 04/25/2020 Recorded SARS-CoV-2 (COVID-19) mRNA-1273 vaccine 03/28/2020 Recorded hepatitis B pediatric vaccine 04/07/2015 Recorded Patient Instructions Please call your doctor if you note any of the following symptoms: - fever of 100.4 or greater - heavy vaginal bleeding - foul-smelling vaginal discharge - difficulty or burning with urination - nausea and vomiting with inability to tolerate food - pain not controlled by your prescribed medications - redness/swelling/drainage at incision(s) - shortness of breath or chest pain ?? In addition, please follow these steps to help your healing process: ?? - Do not drive while taking narcotics. Do not drive until cleared by your doctor. - Avoid lifting anything 15lbs or greater for 2 weeks or until cleared by your doctor. - Do not put anything in the vagina. No intercourse, tampons, or douching??for 8 weeks. - Walk as often as you are able. - Continue your stool softeners (examples: colace/docusate, senna, miralax) until no longer taking narcotics and stools are regular. - Shower as usual after 24 hours. Remove Steri-Strips when they start to peel off, or after 5 days.Do not scrub the incision. Pat the skin dry. ?? Pain Control Instructions: Continue Tylenol and ibuprofen scheduled and only take opiates as prescribed??for breakthrough painin the first few days after you get home.??You may fill less than the prescribed amount, and you should store them in a safe location in a childproof prescription bottle.??Any unused opiates should be returned to a prescription drop-box, such as the one at the [facility]. No one other than you should take your opiates, and you should not use them for anything other than your postoperative pain. You should not drive while taking opiates. ?? Please call the office with pain that is not controlled with this regimen. ?? [facility], [place]??[address] * Caio DO [facility]: PERFORM Event Display: Discharge/Transfer Note Hospital Authored Date: Patient seen this morning with suspected post-anesthesia urinary retention. She reports she is ableto void but not fully. She was bladder scanned this morning with 800cc and straight cathed at 7:30AM for 800cc. Patient reports a history if this happening after both her appendectomy and her cholecystectomy. She did not require a carvalho either time. By 10:30 AM patient voided with a post-void residu al of 143cc. On re-eval patient denies the feeling of bladder fullness or incomplete voiding. Discussed with patient that if she develops those symptoms or feels that she is not voiding very much shecan call us or present to [facility]. Patient states she is aware of [facility]. She states she would like to see Dr. Gonzalez for follow up. Copy of her records will be sent to his office. * Marcela Pascal DO: PERFORM Event Display: Discharge/Transfer Note Hospital Authored Date: Attending Attestation: I have seen and evaluated this patient. I have discussed the case and its management with the resident and agree with the findings and plan as documented in the resident???s note.?? Patient discharged home after meeting all post-operative milestones, now voiding spontaneously. Plans to follow-up outpatient with Dr. Gonzalez. Marcela Pascal DO Supervising physician Patient Care team information Care Team Personnel Name: Caridad Javier RN Position: [facility] RN Member Role: Primary Care Nurse Name: Davide Blackwood RN Position: [facility] Supv Member Role: Primary Care Nurse Name: Mary Jo Coe RN Position: [facility] Onco RN Member Role: Primary Care Nurse Name: Tova Trevino RN Position: [facility] SN RN Member Role: Primary Care Nurse Name: Susanna Sheffield MD Position: Reference Physician Member Role: PCP Address: [address] [place] [id number] Telecom: Care Team Related Persons Name: PEACE ELDER Name: ADRIANNE ELDER Insurance Providers Guarantor name: RAMU ELDER Health Plan Information #: 1 Payer: [employer] P[employer] Member Number: [id number] Policy Number: NA Group Number: [id number] Health Plan Information #: 2 Payer: [employer] PPO Member Number: [id number] Policy Number: NA Group Number: [id number]
== END 2024-04-29 13:58 | disposition home or self-care (01) ==
PROVIDERS: PCP Internal Medicine; Visit Provider Physician Assistant
DX: J11.1 Influenza due to unidentified influenza virus with other respiratory manifestations (principal)

== ENCOUNTER 2024-04-29 13:12 | Outpatient (REF) | payer OTHER, SELFPAY ==
[2024-04-30 16:26] LABS: Influenza A PCR POSITIVE (Negative); Influenza B PCR NEGATIVE (Negative); Resp Syncy Virus RNA Qual PCR NEGATIVE (Negative); SARS COV2 PCR INHOUSE NEGATIVE (Negative)
== END 2024-04-29 13:13 | disposition home or self-care (01) ==
LOC: HO.LNP 13:12
PROVIDERS: PCP Internal Medicine; Visit Provider Physician Assistant
DX: J11.1 Influenza due to unidentified influenza virus with other respiratory manifestations (principal); R09.89 Other specified symptoms and signs involving the circulatory and respiratory systems
CPT/HCPCS: 0241U

== ENCOUNTER 2024-08-18 15:03 | Outpatient (AMB) | payer OTHER, SELFPAY ==
--- NOTE | 2024-08-18 15:10 | MHC.PC.OV ---
Vital Signs 08/18/24 15:19 Height 5 ft 5 in Weight 148 lb BMI 24.6 BP 98/72 Blood Pressure Location Rt brachial Position Sitting Respiration 14 Pulse 80 Pulse Source Pulse Oximeter Pulse Oximetry (%) 98 Oxygen Delivery Method Room Air Intake Visit Reasons: WICHO / from [facility] Intake Note: New patient visit Alley Worker Required: No Allergies amoxicillin Allergy (Verified 08/18/24 15:13) Hives Medication List - Last Reconciled 08/19/24 by Susanna Sheffield MD buspirone 30 mg PO DAILY clindamycin phosphate 1% 1 appl topical BID clobetasol 0.05% 1 appl topical BEDTIME 4 weeks norgestrel-ethinyl estradiol 0.3-30 mg-mcg (Robyn (28)) 1 tab PO DAILY scopolamine base 1 patch transdermal Q3D PRN sertraline mg PO valacyclovir 500 mg PO DAILY Tobacco use date assessed: 08/18/24 Dental Screening Did you have a dental visit in the last 12 months?: Yes Did you have a dental problem in the last 6 months where you did not have access to dental care?: No Was dental information given to patient?: Patient has dentist HPI HPI Comments History of Present Illness Details 29 year old female with a past medical history of anxiety, ovarian cyst, galactorrhea, OCD [facility] Anxiety/OCD: stable on sertraline, buspar. Follows with Dr Lackey s/p cholecystectomy, appendectomy. Was following with [facility]. Wants referral for continued follow up at [facility]. Had a cyst removal in April. Also on valtrex. History of galactorhea-brain MRI was normal. On OCP ROS CONSTITUTIONAL: Denies weight loss, fever and chills. HEENT: Denies changes in vision and hearing. RESPIRATORY: Denies SOB and cough. CV: Denies palpitations and CP GI: Denies abdominal pain, nausea, vomiting and diarrhea. : Denies dysuria and urinary frequency. MSK: Denies new myalgia and joint pain. SKIN: Denies rash and pruritus. NEUROLOGICAL: Denies headache PSYCHIATRIC: Denies recent changes in mood. PHYSICAL EXAM: GENERAL: Alert and oriented x 3. NAD EYES: EOMI. Anicteric. HENT: Moist mucous membranes. No scleral icterus. No cervical lymphadenopathy. LUNGS: Clear to auscultation bilaterally. CARDIOVASCULAR: Regular rate and rhythm. No murmur. No JVD. ABDOMEN: Soft, non-tender +bs EXTREMITIES: No edema. Non-tender. SKIN: No rashes or lesions. Warm. NEUROLOGIC: No focal neurological deficits. CN II-XII grossly intact PSYCHIATRIC: Cooperative. Appropriate mood and affect [facility] Medical History Ovarian cyst Surgical History History of removal of ovarian cyst [place] teeth removed Hx of cholecystectomy Hx of appendectomy Family History (Updated 08/18/24 @ 16:21 by Josie Sanchez [facility]) Maternal Grandmother Ovarian cancer Maternal Aunt Breast cancer Maternal Grandmother Diabetes Maternal Grandfather Pancreatic cancer Other FH: mental illness Social History (Updated 08/18/24 @ 16:21 by Josie Sanchez CMA) Housing: Apartment Alcohol intake: current Patient Tobacco Use Status: Never used Tobacco Frequency of e-Cigarette/Vaping Use: every day Use of substances other than those prescribed or required for medical reasons: No service: No Current occupational status: employed 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 1. Little interest or pleasure in doing things: not at all 2. Feeling down, depressed, or hopeless: not at all 3. Trouble falling or staying asleep, or sleeping too much: not at all 4. Feeling tired or having little energy: not at all 5. Poor appetite or overeating: not at all 6. Feeling bad about yourself - or that you are a failure or have let yourself or your family down: not at all 7. Trouble concentrating on things, such as reading the newspaper or watching television: not at all 8. Moving or speaking so slowly that other people could have noticed. Or the opposite - being so fidgety or restless that you have been moving around a lot more than usual: not at all 9. Thoughts that you would be better off or of hurting yourself in some way: not at all Total score: 0 Depression Screening Interpretation: Negative Depression Screening Done: Yes 49715 - PHQ-9 Billing: Yes Source: Developed by Drs. Anjel Fuentes, Franca Newman, Jordan Narvaez and colleagues, with an educational phoebe from [employer]. Thrive Questionnaire Date Thrive assessed: 08/18/24 I am a: Patient What is your living situation today?: I have a steady place to live Within the past 12 months, did the food you bought not last and you didn't have the money to get more?: Never true Within the past 12 months, did you worry whether your food would run out before you got money to buy more?: Never true Do you have trouble paying for medicines?: No Do you have trouble getting transportation to medical appointments?: No Do you have trouble paying your heating and electricity bill?: No Do you have trouble taking care of your child, family member or friend?: No Do you have trouble with day-to-day activities such as bathing, preparing meals, shopping, managing finances, etc.?: No Are you currently unemployed and looking for a job?: No Are you interested in more education?: No Please select the resources that you would like help with: None Currently or been in a relationship where the following occur: No concerns reported THRIVE Score: 0 AUDIT C Alcohol Use Questionnaire (AUDIT-C) 1. How often do you have a drink containing alcohol?: Monthly or less 2. How many drinks containing alcohol do you have on a typical day when you are drinking?: 1 or 2 3. How often do you have six or more drinks on one occasion?: Never Total Score: 1 HENNY-7 AMB Questionnaire HENNY-7 Date HENNY - 7 assessed: 08/18/24 Feeling nervous, anxious, or on edge: 1 = Several days Not being able to stop or control worryin = More than half the days Worrying too much about different things: 2 = More than half the days Trouble relaxin = Not at all Being so restless that it is hard to sit still: 0 = Not at all Becoming easily annoyed or irritable: 0 = Not at all Feeling afraid as if something awful might happen: 0 = Not at all Total HENNY-7 score (0-4 normal; 5-9 mild; 10-14 moderate; 15-21 severe): 5 Source: Developed by Drs. Anjel Fuentes, Franca Newman, Jordan Narvaez and colleagues, with an educational phoebe from [employer]. HENNY-7 Assessment Billing HENNY-7 Assessment Tool: HENNY-7 Assessment 48292 Physical exam (Primary Care) Vital Signs: Last Vital Signs Pulse 80 08/18/24 15:19 Resp 14 08/18/24 15:19 BP 98/72 08/18/24 15:19 Pulse Ox 98 08/18/24 15:19 Oxygen Delivery Method Room Air 08/18/24 15:19 BMI result Body Mass Index 24.6 Tobacco/Smoking Status: Tobacco use Status Tobacco use date assessed 08/18/24 08/18/24 15:27 Patient Tobacco Use Status Never used Tobacco 08/18/24 16:21 PHQ-9: PHQ-9 Score PHQ-9: Total score 0 08/19/24 14:16 Depression Screening Interpretation: Negative Thrive Assessment: Date of Thrive Assessment Date Thrive assessed 08/18/24 08/18/24 16:21 Currently or been in a relationship where the following occur: No concerns reported Coding Level of Care Code Est Pt Level 4 (34117) Complex EM visit Add On G2211 Diagnoses Screening for hyperlipidemia Z13.220 Galactorrhea N64.3 Screening for metabolic disorder Z13.228 Screening, deficiency anemia, iron Z13.0 Dermatitis L30.9 Additional Codes HENNY-7 Assessment Billing - HENNY-7 Assessment Tool: HENNY-7 Assessment 67301 ([id number]) PHQ-9 - 67062 - PHQ-9 Billing: Yes ([id number]) Assessment & Plan Assessment & Plan (1) Screening for hyperlipidemia: Code(s): Z13.220 - Encounter for screening for lipoid disorders Category: Medical (2) Galactorrhea: Code(s): N64.3 - Galactorrhea not associated with childbirth Category: Medical (3) Screening for metabolic disorder: Code(s): Z13.228 - Encounter for screening for other metabolic disorders Category: Medical (4) Screening, deficiency anemia, iron: Code(s): Z13.0 - Encounter for screening for diseases of the blood and blood-forming organs and certain disorders involving the immune mechanism Category: Medical (5) Dermatitis: Code(s): L30.9 - Dermatitis, unspecified Category: Medical Plan 29 year old female to reestablish care Interval history reviewed BH: Stable on current medication 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 Panel 08/18/24 N64.3 - Galactorrhea not associated with childbirth, Z13.0 - Encounter for screening for diseases of the blood and blood-forming organs and certain disorders involving the immune mechanism, Z13.220 - Encounter for screening for lipoid disorders, Z13.228 - Encounter for screening for other metabolic disorders Lipid Panel 08/18/24 N64.3 - Galactorrhea not associated with childbirth, Z13.0 - Encounter for screening for diseases of the blood and blood-forming organs and certain disorders involving the immune mechanism, Z13.220 - Encounter for screening for lipoid disorders, Z13.228 - Encounter for screening for other metabolic disorders TSH reflex Free T4 08/18/24 N64.3 - Galactorrhea not associated with childbirth, Z13.0 - Encounter for screening for diseases of the blood and blood-forming organs and certain disorders involving the immune mechanism, Z13.220 - Encounter for screening for lipoid disorders, Z13.228 - Encounter for screening for other metabolic disorders Hemoglobin A1c 08/18/24 N64.3 - Galactorrhea not associated with childbirth, Z13.0 - Encounter for screening for diseases of the blood and blood-forming organs and certain disorders involving the immune mechanism, Z13.220 - Encounter for screening for lipoid disorders, Z13.228 - Encounter for screening for other metabolic disorders Prolactin 08/18/24 N64.3 - Galactorrhea not associated with childbirth, Z13.0 - Encounter for screening for diseases of the blood and blood-forming organs and certain disorders involving the immune mechanism, Z13.220 - Encounter for screening for lipoid disorders, Z13.228 - Encounter for screening for other metabolic disorders Complete Blood Count Auto Diff 08/18/24 N64.3 - Galactorrhea not associated with childbirth, Z13.0 - Encounter for screening for diseases of the blood and blood-forming organs and certain disorders involving the immune mechanism, Z13.220 - Encounter for screening for lipoid disorders, Z13.228 - Encounter for screening for other metabolic disorders Referrals ASSISTANT MANAGER RETAIL Referral Z01.419 - Encounter for gynecological examination (general) (routine) without abnormal findings Medications: New scopolamine base 1 patch transdermal Q3D PRN 10 ea 1RF nausea and vomiting clindamycin phosphate 1% 1 appl topical BID 60 grams 3RF Changed From valacyclovir PO DAILY To valacyclovir 500 mg PO DAILY 90 tabs 3RF
[2024-08-18 15:19] VITALS: BP 98/72; PULSE 80; RESP 14; O2SAT 98; BMI 24.6
== END 2024-08-18 15:54 | disposition home or self-care (01) ==
LOC: HO.HMCFM 15:04
PROVIDERS: PCP Internal Medicine; Visit Provider Internal Medicine
DX: Z13.220 Encounter for screening for lipoid disorders (principal); N64.3 Galactorrhea not associated with childbirth; Z13.228 Encounter for screening for other metabolic disorders; Z13.0 Encounter for screening for diseases of the blood and blood-forming organs and certain disorders involving the immune mechanism; L30.9 Dermatitis, unspecified

== ENCOUNTER → 2024-08-18 15:03 | Outpatient (BNVA) | payer OTHER, SELFPAY | PROVIDERS: PCP Internal Medicine; Visit Provider Internal Medicine | DX: N64.3 Galactorrhea not associated with childbirth (principal); L30.9 Dermatitis, unspecified | CPT/HCPCS: 96127 ==

== ENCOUNTER 2024-08-20 08:13 | Outpatient (REF) | payer OTHER, SELFPAY ==
[2024-08-20 08:25] LABS: MANUAL DIFF FLAG NO
[2024-08-20 08:43] LABS: Basophils Absolute Auto 0.1 X10*3/uL (0.0-0.2); Basophils Percent Auto 1.1 % (0-2); Eosinophils Absolute Auto 0.1 X10*3/uL (0.0-0.4); Eosinophils Percent Auto 1.5 % (0-4); Hematocrit 40.4 % (37.0-47.0); Hemoglobin 14.2 g/dl (12.0-16.0); Imm Gran Abs Auto 0.01 X10*3/uL (0.00-0.03); Imm Gran Pct Auto 0.2 % (0.0-0.4); Lymphocytes Absolute Auto 1.8 X10*3/uL (1.2-4.9); Lymphocytes Percent Auto 39.5 % (20-40); Mean Corpuscular HGB Conc 35.1 g/dl (31.0-35.0); Mean Corpuscular Hemoglobin 32.5 pg (27.0-33.0); Mean Corpuscular Volume 92.4 fL (80.0-98.0); Mean Platelet Volume 8.9 fL (9.4-12.3); Monocytes Absolute Auto 0.3 X10*3/uL (0.1-1.2); Monocytes Percent Auto 6.4 % (2-11); Neutrophils Absolute Auto 2.3 x10*3/uL (2.0-8.3); Neutrophils Percent Auto 51.3 % (45-73); Platelet Count 304 X10*3/uL (160-400); Red Blood Count 4.37 X10*6/uL (4.20-5.50); Red Cell Distribution Width 11.8 % (11.0-16.0); White Blood Count 4.6 X10*3/uL (4.8-10.8)
[2024-08-20 09:05] LABS: Estimated Average Glucose 97 mg/dL; Total Hemoglobin (HGBA1C) 3716.7365 umol/L
[2024-08-20 09:28] LABS: Alanine Aminotransferase 15 U/L (0-31); Albumin Level 4.3 g/dL (3.5-5.0); Alkaline Phosphatase 55 U/L (39-117); Anion Gap 9 (12-20); Aspartate Amino Transferase 21 U/L (5-31); Bilirubin Total 0.7 mg/dL (0.0-1.0); Blood Urea Nitrogen 10 mg/dL (9-16); Calcium 9.1 mg/dL (8.4-10.2); Carbon Dioxide 24 mmol/L (22-29); Chloride 110 mmol/L (96-108); Cholesterol 202 mg/dL (<200); Estimated Glomerular Filt Rate > 60; Glucose Random 98 mg/dL (60-115); Potassium 3.9 mmol/L (3.3-5.1); Sodium 139 mmol/L (135-145); Total Protein 7.1 g/dL (6.5-8.0); Triglycerides 71 mg/dL (<150)
[2024-08-20 09:35] LABS: TSH reflex Free T4 0.64 uIU/mL (0.32-4.0)
[2024-08-20 11:16] LABS: HDL Cholesterol 65 mg/dL (>40); LDL Cholesterol Calculated 123 mg/dL (<100)
[2024-08-21 03:59] LABS: Prolactin 9.8 ng/mL
== END 2024-08-20 08:14 | disposition home or self-care (01) ==
LOC: HO.LAB 08:13
PROVIDERS: PCP Internal Medicine; Visit Provider Internal Medicine
DX: N64.3 Galactorrhea not associated with childbirth (principal); Z13.220 Encounter for screening for lipoid disorders; Z13.228 Encounter for screening for other metabolic disorders; Z13.0 Encounter for screening for diseases of the blood and blood-forming organs and certain disorders involving the immune mechanism; Z13.1 Encounter for screening for diabetes mellitus; Z13.6 Encounter for screening for cardiovascular disorders
CPT/HCPCS: 36415; 80053; 80061; 83036; 84146; 84443; 85025

== ENCOUNTER 2024-11-03 14:34 | Outpatient (AMB) | payer OTHER, SELFPAY ==
[2024-11-03 14:35] VITALS: BMI 24.6
--- NOTE | 2024-11-03 14:35 | A.OFFVIS_ITS ---
Vital Signs 11/03/24 14:35 Height 5 ft 5 in Weight 148 lb BMI 24.6 Intake Visit Reasons: pelvic pain Poultry Feed Supervisor Required: No Information Interpreted: non-clinical & clinical Market Relationship Manager: Market Relationship Manager Present (Oanh) Accompanied by: Self / Same As Patient Allergies amoxicillin Allergy (Verified 11/03/24 14:36) Hives HPI Comments Details: Presenting complaining of 4 day history of right lower quadrant pain, associated with urinary frequency and back pain, no associated nausea and vomiting no fever or chills PFSH Medical History Ovarian cyst Surgical History History of removal of ovarian cyst [place] teeth removed Hx of cholecystectomy Hx of appendectomy Family History Maternal Grandmother Ovarian cancer Maternal Aunt Breast cancer Maternal Grandmother Diabetes Maternal Grandfather Pancreatic cancer Other FH: mental illness Social History Housing: Apartment Alcohol intake: current Patient Tobacco Use Status: Never used Tobacco service: No Current occupational status: employed 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 Current occupational exposures/hazards: No Cognitive needs: No Hearing needs: No Vision needs: Yes (glasses) Review of Systems Const All systems reviewed & are unremarkable except as noted in HPI and below Physical Exam Vital Signs: BMI result Body Mass Index 24.6 General: Yes no CVA tenderness External Female Exam: normal external appearance and normal appearance of the urethra Speculum Exam - Vagina: normal appearance of the vagina, normal palpation, no lesions and no masses Speculum Exam - Cervix: normal appearance of the cervix, normal palpation, no lesions, no masses and nontender Bimanual exam- vagina & uterus: normal bimanual exam, normal palpation, uterine size normal, normal palpation, uterine shape normal, No Cervical tenderness present and non-tender Bimanual Exam- Adnexa, other: normal adnexae Back/Spine/Pelvis Back: no CVA tenderness Assessment & Plan Assessment & Plan (1) Pelvic pain: Code(s): R10.2 - Pelvic and perineal pain Category: Medical Plan: Urine test done in the office was negative. GC and chlamydia taken and pelvic ultrasound schedule for this BM. Discussed with the patient the differential diagnosis of pelvic pain including but not limited to adnexal, uterine masses, pelvic infections (PID), GI the (Irritable bowel syndrome, diverticulitis, others), musculoskeletal, myofascial pain abdominal wall , adhesions, endometriosis, psychological and others causes. Will check results and treat accordingly. All questions answered, the patient verbalized understanding. Instructed the patient to schedule an ultrasound and a follow-up appointment in 2 weeks. All questions answered, the patient verbalized understanding and agreed with the plan. (2) Microscopic hematuria: Code(s): R31.29 - Other microscopic hematuria Category: Medical Plan: Urine dip showed microscopic hematuria, you were to send urine for culture will repeat urine dip in 2-4 weeks if persistent microscopic hematuria will proceed with workup including CT scan of abdomen and pelvis and referral to Urology for cystoscopy. Coding Level of Care Code Est Pt Level 3 (48677) Diagnoses Pelvic pain R10.2 Microscopic hematuria R31.29
--- OUTSIDE RECORDS SUMMARY | 2024-11-03 15:11 | XMS_ITS | Clinical Summary ---
Author Organization [facility] Address [address] [phone] Phone Care Team Providers Care Aircraft Cleaning Supervisor Name Role Phone Isaiah Zhang MD Primary Care Provider Unavailable Allergies Active Allergy Reactions Criticality Noted Date Comments Amoxicillin 01/15/2023 Medications sertraline (ZOLOFT) 100 MG tablet Take 2 tablets by mouth every morning. 3 Active CRYSELLE, 28, 0.3-30 mg-mcg per tablet Take 1 tablet by mouth every morning. 3 Active busPIRone (BUSPAR) 30 MG tablet Take 30 mg by mouth 2 (two) times a day. Active clobetasol (CLOBEX) 0.05 % shampoo APPLY TOPICALLY AT BEDTIME FOR 4 WEEKS 4 Active doxycycline hyclate (DORYX) 100 MG tablet Take 100 mg by mouth 2 (two) times a day. 5 Active valACYclovir (VALTREX) 500 MG tablet TAKE 1 TABLET BY MOUTH ONCE A DAY FOR 90 DAYS. IF A GENITAL OUTBREAK OCCURS INCREASE TO 1 PILL TWICE A DAY FOR 3 DAYS. IF ORAL OUTBREAK OCCU 5 Active albuterol (PROAIR HFA) 90 mcg/actuation inhaler Inhale 2 puffs into the lungs every 4 (four) hours as needed for wheezing. 18 g 5 Active benzonatate (TESSALON) 100 MG capsule Take 2 capsules (200 mg total) by mouth 3 (three) times a day as needed for cough. 21 capsule 5 Active inhaler spacing device (AEROCHAMBER,BR EATHERITE) Spcr Inhale 1 each into the lungs every 4 (four) hours as needed (WITH INHALER). 1 each 5 Active Active Problems No known active problems Social History Tobacco Use Types Packs/Day Years Used Date Smoking Tobacco: Never Assessed Smokeless Tobacco: Never Tobacco Cessation:Counseling Given: Not Answered Comments:vaping Education Answer Date Recorded Are you [...] on file Sexual Orientation Not on file Last Filed Vital Signs Vital Sign Reading Time Taken Comments Blood Pressure 114/78 06/14/2024 3:30 PM EDT Pulse 89 06/14/2024 3:30 PM EDT Temperature 37.1 C (98.8 F) 06/14/2024 3:30 PM EDT Respiratory Rate 18 06/14/2024 3:30 PM EDT Oxygen Saturation 98% 06/14/2024 3:30 PM EDT Inhaled Oxygen Concentration - - Weight 65.8 kg (145 lb) 01/15/2023 6:12 PM EDT Height 165.1 cm (5' 5 ) 01/15/2023 6:12 PM EDT Body Mass Index 24.13 01/15/2023 6:12 PM EDT Plan of Treatment Health Maintenance Due Date Last Done Comments Adult Td,Tdap Booster 1996 DEPRESSION SCREENING 2008 SMOKING Hx and SMOKELESS TOBACCO SCREENING 2009 HEPATITIS C SCREENING 2014 HIV ONE-TIME SCREENING (18-6 5 YEARS) 2014 PAP SMEAR 2017 COVID-19 VACCINE (2023-2 5 season) 2023 02/01/2021, 04/25/2020, 03/28/2020 HEPATITIS A VACCINES Aged Out No long er eligible based on patient's age to complete this topic HIB VACCINES Aged Out No longer eligi ble based on patient's age to complete this topic MENINGOCOCCAL VACCINES (ACWY) Aged Out No longer eligible based on patient's age to complete this topic MENINGOCOCCAL VACCINES (B) Aged Out N o longer eligible based on patient's age to complete this topic PNEUMOCOCCAL VACCINES (0-49 years) Aged Out No longer eligible b ased on patient's age to complete this topic Medical Devices Not on file Insurance [employer] BENEFITS ADMINISTRATORS [employer] ADMINISTRATORS [employer] BENEFITS ADMINISTRATORS [employer] BENEFITS ADMINISTRATORS [employer] BENEFITS ADMINISTRATORS [employer]ENEF[employer] ADMINISTRATORS Care Teams Aircraft Cleaning Supervisor Relationship Specialty Start Date End Date Isaiah Zhang MD PCP - General Internal Medicine 01/15/23 Additional Source Comments The information contained in this document represents components of the legal health record. It is not the complete legal health record.[facility]
== END 2024-11-03 15:48 | disposition home or self-care (01) ==
LOC: HO.HWS 14:34
PROVIDERS: PCP Internal Medicine; Visit Provider Obstetrics & Gynecology
DX: Z32.02 Encounter for pregnancy test, result negative (principal); N83.201 Unspecified ovarian cyst, right side; R31.29 Other microscopic hematuria; R10.2 Pelvic and perineal pain
CPT/HCPCS: 99213

== ENCOUNTER 2024-11-03 14:49 | Outpatient (REF) | payer OTHER, SELFPAY ==
[2024-11-03 17:41] LABS: CT PCR NOT DETECTED (Not Detect.); NG PCR NOT DETECTED (Not Detect.)
== END 2024-11-03 14:50 | disposition home or self-care (01) ==
LOC: HO.LNP 14:49
PROVIDERS: Visit Provider Obstetrics & Gynecology
DX: Z11.3 Encounter for screening for infections with a predominantly sexual mode of transmission (principal); Z11.4 Encounter for screening for human immunodeficiency virus [HIV]; N83.201 Unspecified ovarian cyst, right side; R31.29 Other microscopic hematuria
CPT/HCPCS: 87086; 87491; 87591

== ENCOUNTER 2024-11-03 14:55 | Outpatient (REF) | payer OTHER, SELFPAY ==
--- NOTE | ~2024-11-03 | US_ITS ---
EXAMINATION: US PELVIS CLINICAL INFORMATION: N83.201 - Unspecified ovarian cyst, right side COMPARISON: April 22, 2024 TECHNIQUE: Ultrasound of the pelvis is performed using both transabdominal and transvaginal transducers along with Doppler. Transvaginal imaging is performed due to inadequate visualization transabdominally. FINDINGS: Uterus: The uterus is anteverted and measures 7.2 x 3.8 x 5.1 cm. The double wall endometrial thickness is 6 mm. The uterus is smooth in contour and has normal myometrial echogenicity. No visible fibroid. Adnexa: Both ovaries are visualized. There is normal color flow to the adnexa. There is no ovarian torsion. There is no pelvic ascites or fluid collection. Right ovary measures 3.5 x 1.8 x 2.5 cm. Left ovary measures 4.3 x 3.3 x 3.8 cm. There is a cyst with minimal internal echogenicity measuring 4.1 x 2.8 x 3.3 cm, previously 7.2 x 4.5 x 7.7 cm. US/US pelvic and transvaginal IMPRESSION: Interval decrease in size of minimally complex cyst without internal blood flow on color Doppler involving the left ovary that now measures 4.1 cm long axis. Probable hemorrhagic cyst. No further follow-up is indicated. Electronically signed by: Shay Lazaro MD 11/03/2024 03:38 PM EDT
== END 2024-11-03 14:56 | disposition home or self-care (01) ==
LOC: HO.US 14:55
PROVIDERS: PCP Internal Medicine; Visit Provider Internal Medicine
DX: R10.2 Pelvic and perineal pain (principal); R31.29 Other microscopic hematuria; N83.202 Unspecified ovarian cyst, left side; Z32.02 Encounter for pregnancy test, result negative
CPT/HCPCS: 76830; 76856; 81002; 81025

== ENCOUNTER → 2024-11-03 15:03 | Outpatient (BNV) | payer OTHER, SELFPAY | PROVIDERS: PCP Internal Medicine; Visit Provider Radiology Diagnostic Radiology | DX: N83.202 Unspecified ovarian cyst, left side (principal) | CPT/HCPCS: 76830; 76856 ==

== ENCOUNTER 2025-01-06 07:50 | Outpatient (REF) | payer OTHER, SELFPAY ==
--- OUTSIDE RECORDS SUMMARY | 2024-06-14 15:56 | XMS_ITS | Encounter Summary ---
Author Organization [facility] Address [address] [facility] [address] [place] [address] Phone Care Team Providers Care Car Installations Supervisor Name Role Phone Isaiah Zhang MD Primary Care Provider Unavailable Encounter Details Date Type Department Care Team (Late st Contact Info) Description 06/14/2024 3:56 PM EDT Hospital Encounter [facility] [address] [place] [phone] Jennifer Braun FNP [address] [place] [phone] [email or web address] Social History Tobacco Use Types Packs/Day [...] report originally createdby Christopher Leon. Jennifer Braun ROLL FORMING SUPERVISOR IMG XR CHEST Final Resul t documented in this encounter Visit Diagnoses Not on filedocumented in this encounter Additional Health Concerns Infection Onset Date Last Indicated Resolved Time CoV-Risk 06/14/2024 06/14/2024 06/25/2024 1:21 AM EDT documented as of this encounter Care Teams Car Installations Supervisor Relationship Specialty Start Date End Date Isaiah Zhang MD PCP - General Internal Medicine 01/15/23 documented as of this encounter Additional Source Comments The information contained in this document represents components of the legal health record. It is not the complete legal health record.[facility]
--- NOTE | ~2025-01-06 | XR_ITS ---
EXAMINATION: XR KNEE, RIGHT CLINICAL INFORMATION: M17.11 - Unilateral primary osteoarthritis, right knee. COMPARISON: None available. TECHNIQUE: AP bilateral knees one view. Right knee two views. FINDINGS: RIGHT KNEE: Alignment is anatomic. Medial and lateral compartment joint space is maintained. No visible acute fracture or dislocation. On the sunrise view, there is mild lateral patellar subluxation and lateral patellar tilt, with associated decreased joint space. No effusion. No suspicious soft tissue calcifications. No suspicious lytic or blastic lesion. LEFT KNEE: On the frontal view, joint space is maintained. No acute osseous findings. XR/XR knee RT 3V IMPRESSION: RIGHT KNEE: No acute osseous findings. Mild lateral patellar subluxation and patellar tilt on the sunrise view. Electronically signed by: Graeme Patel MD 01/06/2025 11:57 AM EDT
--- OUTSIDE RECORDS SUMMARY | 2025-01-06 07:53 | XMS_ITS | Clinical Summary ---
Author Organization [facility] Address [address] [phone] Phone Care Team Providers Care Windsmith Name Role Phone Isaiah Zhang MD Primary [...] (18-6 5 YEARS) 2014 PAP SMEAR 2017 INFLUENZA VACCINE (#1) 2024 , 03/05/2023, 01/17/2021 COVID-19 VACCINE (2024-2 6 season) 2024 02/01/2021, 04/25/2020, 03/28/2020 HEPATITIS A VACCINES Aged [...] topic Medical Devices Not on file Insurance [employer] ADMINISTRATORS [employer] Member Subscriber Plan / Payer ( fective 2022-Present) Name:Chelsea Higgins Relation to Subscriber:Self Name:Chelsea Higgins Payer ID:[id number] (NAIC) Type:PPO Address: [place] [phone] [employer] ADMINISTRATORS [employer] Care Teams Windsmith Relationship Specialty Start Date End Date Isaiah Zhang MD PCP - General Internal Medicine 01/15/23 Additional Source Comments The information contained in this document represents components of the legal health record. It is not the complete legal health record.[facility]
== END 2025-01-06 07:51 | disposition home or self-care (01) ==
LOC: HO.HOSX 07:50
PROVIDERS: Visit Provider Physician Assistant
DX: M17.11 Unilateral primary osteoarthritis, right knee (principal); M22.2X1 Patellofemoral disorders, right knee
CPT/HCPCS: 73562

== ENCOUNTER 2025-01-06 09:58 | Outpatient (AMB) | payer OTHER, SELFPAY ==
--- NOTE | 2025-01-06 10:10 | A.OFFVIS_ITS ---
Vital Signs 01/06/25 10:15 Height 5 ft 5 in Weight 148 lb BMI 24.6 Intake Visit Reasons: New Pt- Right Knee Pain Intake Note: Chelsea is a 29 year old female who presents today as a New Patient with complaints of Right Knee Pain. She reports that she has had ongoing intermittant pain for quite some time now but this flair up has been ongoing for about 1 month now. She has increased pain with prolonged standing, walking and bending. By the end of the day her knee is swollen and painful. She has trid taking Ibuprofen with mild temporary relief. No previous bracing or therapies tried. Allergies amoxicillin Allergy (Verified 01/06/25 10:15) Hives Medication List - Last Reviewed 01/06/25 by Nanette Estrella, NAT buspirone 30 mg PO DAILY clindamycin phosphate 1% 1 appl topical BID clobetasol 0.05% 1 appl topical BEDTIME 4 weeks norgestrel-ethinyl estradiol 0.3-30 mg-mcg (Robyn (28)) 1 tab PO DAILY scopolamine base 1 patch transdermal Q3D PRN sertraline mg PO valacyclovir 500 mg PO DAILY HPI HPI New Pt- Right Knee Pain: Details: 29 yo female presents to the office today for right knee pain on and off for 8 months. She states she has pain that is getting worse along with clicking. She c/o swelling along with a bump over the patellar tendon. She experiences discomfort with stairs, bending and prolonged walking. 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 Current occupational exposures/hazards: No Cognitive needs: No Hearing needs: No Vision needs: Yes (glasses) Review of Systems Const All systems reviewed & are unremarkable except as noted in HPI and below Physical Exam Vital Signs: BMI result Body Mass Index 24.6 Const General: cooperative and no acute distress Orientation/consciousness: patient oriented x3 Resp Effort & Inspection: normal respiratory effort and able to speak in complete sentences Cardio Peripheral pulses: Peripheral pulses 2+ throughout Neuro General: patient oriented x3 Extrem Other: Right knee is normal to inspection no effusion or erythema. She has crepitus with range of motion and lateral retropatellar tenderness. No ligamentous laxity. Calf supple and nontender neurovascularly intact. Results Reviewed Results Reviewed: X-rays of the right knee obtained in the office today and reviewed by me show lateralization of the patella. Assessment & Plan Assessment & Plan (1) Right patellofemoral syndrome: Code(s): M22.2X1 - Patellofemoral disorders, right knee Category: Medical Plan: We discussed options today which includes conservative management with posterior chain and glute strengthening exercises. She was given a handout today to work on these specific exercises. I also fit had her fit for a Pedro pull stabilizing knee brace to wear with activity. She was also given a prescription for naproxen to take twice a day for 2 weeks to help with the acute flares. If symptoms persist or worsen she can contact our office otherwise follow up as needed. Orders: Orders XR knee RT 3V Today M17.11 - Unilateral primary osteoarthritis, right knee Medications: New naproxen 500 mg PO BID 60 tabs 3RF 30 days Coding Level of Care Code New Pt Level 3 (01041) Complex EM visit Add On G2211 Diagnoses Right patellofemoral syndrome M22.2X1
[2025-01-06 10:15] VITALS: BMI 24.6
== END 2025-01-06 10:36 | disposition home or self-care (01) ==
LOC: HO.HOS 09:59
PROVIDERS: PCP Internal Medicine; Visit Provider Physician Assistant
DX: M22.2X1 Patellofemoral disorders, right knee (principal)
CPT/HCPCS: 99203

== ENCOUNTER → 2025-01-06 10:01 | Outpatient (BNV) | payer OTHER, SELFPAY | PROVIDERS: Visit Provider Radiology Diagnostic Ultrasound | DX: M17.11 Unilateral primary osteoarthritis, right knee (principal) | CPT/HCPCS: 73562 ==

== ENCOUNTER 2025-02-04 16:32 | Outpatient (REF) | payer OTHER, SELFPAY ==
--- OUTSIDE RECORDS SUMMARY | 2024-06-14 14:56 | XMS_ITS | Encounter Summary ---
Author Organization [facility] Address [address] [facility] [address] [place] [phone] Phone Care Team Providers Care Hotel Attendant Name Role Phone Isaiah Zhang MD Primary Care Provider Unavailable Encounter Details Date Type Department Care Team (Late st Contact Info) Description 06/14/2024 3:56 PM EDT Hospital Encounter [facility] [address] [place] [phone] Jennifer Braun FNP [address] [place] [phone] [email or web address] Social History Tobacco Use Types Packs/Day Years [...] report originally createdby Christopher Leon. Jennifer Braun FLOOR TECH IMG XR CHEST Final Resul t documented in this encounter Visit Diagnoses Not on filedocumented in this encounter Additional Health Concerns Infection Onset Date Last Indicated Resolved Time CoV-Risk 06/14/2024 06/14/2024 06/25/2024 1:21 AM EDT documented as of this encounter Care Teams Hotel Attendant Relationship Specialty Start Date End Date Isaiah Zhang MD PCP - General Internal Medicine 01/15/23 documented as of this encounter Additional Source Comments The information contained in this document represents components of the legal health record. It is not the complete legal health record.[facility]
--- NOTE | ~2025-02-04 | US_ITS ---
EXAMINATION: US PELVIS CLINICAL INFORMATION: N83.209 - Unspecified ovarian cyst, left ovarian cyst follow-up COMPARISON: November 03 and September 20, 2024 TECHNIQUE: Ultrasound of the pelvis is performed using both transabdominal and transvaginal transducers along with Doppler. Transvaginal imaging is performed due to inadequate visualization transabdominally. FINDINGS: Uterus: The uterus is anteverted and measures 8.2 x 2.6 x 4.2 cm. The double wall endometrial thickness is 2 mm. The uterus is smooth in contour and has normal myometrial echogenicity. No visible fibroid. Adnexa: Both ovaries are visualized. There is normal color flow to the adnexa. There is no ovarian torsion. There is no pelvic ascites or fluid collection. Right ovary measures 4.2 x 3.1 x 3.6 cm. Left ovary measures 3.8 x 2.8 x 2.6 cm. 4 cm cyst present on prior ultrasound has resolved. US/US pelvic and transvaginal IMPRESSION: Normal pelvic ultrasound Electronically signed by: Shay Lazaro MD 02/04/2025 04:58 PM EST
--- OUTSIDE RECORDS SUMMARY | 2025-02-04 18:48 | XMS_ITS | Clinical Summary ---
Author Organization [facility] Address [address] [phone] Phone Care Team Providers Care Leg Assembler Name Role Phone Isaiah Zhang MD Primary [...] topic Medical Devices Not on file Insurance [employer] ADMINISTRAT[employer] Member Subscriber Plan / Payer ( fective 2022-Present) Name:Chelsae Higgins Relation to Subscriber:Self Name:Chelsea Higgins Payer ID:[id number] (NAIC) Type:PPO Address: [place] [phone] [employer] BENEFITS ADMINISTRATORS [employer] BENEF[employer] ADMINISTRATORS [employer] BENEFITS ADMINISTRATORS [employer] ADMINISTRATORS Care Teams Leg Assembler Relationship Specialty Start Date End Date Isaiah Zhang MD PCP - General Internal Medicine 01/15/23 Additional Source Comments The information contained in this document represents components of the legal health record. It is not the complete legal health record.[facility]
== END 2025-02-04 16:33 | disposition home or self-care (01) ==
LOC: HO.US 16:32
PROVIDERS: Visit Provider Obstetrics & Gynecology
DX: N83.209 Unspecified ovarian cyst, unspecified side (principal)
CPT/HCPCS: 76830; 76856

== ENCOUNTER → 2025-02-04 16:34 | Outpatient (BNV) | payer OTHER, SELFPAY | PROVIDERS: Visit Provider Radiology Diagnostic Radiology | DX: N83.292 Other ovarian cyst, left side (principal) | CPT/HCPCS: 76830; 76856 ==

== ENCOUNTER 2025-02-11 12:38 | Outpatient (AMB) | payer OTHER, SELFPAY ==
--- OUTSIDE RECORDS SUMMARY | 2024-06-14 14:56 | XMS_ITS | Encounter Summary ---
Author Organization [facility] Address [address] [facility] [address] [place] [phone] Phone Care Team Providers Care Economics Professor Name Role Phone Isaiah Zhang MD Primary Care Provider Unavailable Encounter Details Date Type Department Care Team (Late st Contact Info) Description 06/14/2024 3:56 PM EDT Hospital Encounter [facility] [address] [place] [phone] Jennifer Braun FNP [address] [place] [phone] [email or web address] Social History Tobacco Use Types Packs/Day Years [...] Tissues: No significant skeletal abnormality. Procedure Note Huyn Bliss MD, JUDE - 06/14/2024 XR CHEST [...] report originally createdby Christopher Leon. Jennifer Braun EPIC ANALYST IMG XR CHEST Final Resul t documented in this encounter Visit Diagnoses Not on filedocumented in this encounter Additional Health Concerns Infection Onset Date Last Indicated Resolved Time CoV-Risk 06/14/2024 06/14/2024 06/25/2024 1:21 AM EDT documented as of this encounter Care Teams Economics Professor Relationship Specialty Start Date End Date Isaiah Zhang MD PCP - General Internal Medicine 01/15/23 documented as of this encounter Additional Source Comments The information contained in this document represents components of the legal health record. It is not the complete legal health record.[facility]
--- NOTE | 2025-02-11 12:39 | MHC.OFFVIS ---
Intake Visit Reasons: ultrasound results Allergies amoxicillin Allergy (Verified 01/06/25 10:15) Hives HPI Comments Details: The patient is schedule telehealth visit for follow-up ultrasound regarding left complex ovarian cyst that was seen on previous ultrasound. Doing well with no complaints. 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 Current occupational exposures/hazards: No Cognitive needs: No Hearing needs: No Vision needs: Yes (glasses) Review of Systems Const All systems reviewed & are unremarkable except as noted in HPI and below Reports as per HPI and Reports no additional complaints GI Reports no additional complaints Reports no additional complaints Telehealth Telehealth Telehealth Platform: [facility] Location of provider rendering services: practice address Location of patient: address on file Patient Identification confirmed using: Name, : Yes Telehealth method: video Patient verbally consented to treatment: Yes Patient verbally consented to billing insurance company: Yes Patient informed of any privacy concerns related to visit: Yes Minutes spent on Phone/Video with Pt.: 3 Assessment & Plan Assessment & Plan (1) Ovarian cyst: Comment: Resolved Code(s): N83.209 - Unspecified ovarian cyst, unspecified side Category: Medical Qualifiers: Laterality: right Qualified Code(s): N83.201 - Unspecified ovarian cyst, right side Plan: Discussed with the patient ultrasound findings showing the previously identified complex cyst has resolved. The patient was instructed to call if symptoms recur. All questions were answered the patient verbalized understanding. I spent a total of 20 minutes reviewing the chart, talking to the patient via video and documenting in the medical record. Coding Level of Care Code Tele Est Pt Level 3 (68774) Diagnoses Cyst of right ovary N83.201 Laterality: right
--- OUTSIDE RECORDS SUMMARY | 2025-02-11 15:45 | XMS_ITS | Clinical Summary ---
Author Organization [facility] Address [address] [phone] Phone Care Team Providers Care Soda Dialyzer Name Role Phone Isaiah Zhang MD Primary [...] on patient's age to complete this topic IPV VACCINES Aged Out No longer eligi ble [...] topic Medical Devices Not on file Insurance [employer]MINISTRATORS Member Subscriber Plan / Payer ( fective 2022-Present) Name:Chelsea Higgins Relation to Subscriber:Self Name:Chelsea Higgins Payer ID:[id number] (NAIC) Type:PPO Address: [address] [employer] ADMINISTRATORS Member Subscriber Plan / Payer ( fective 2022-Present) Name:Chelsea Higgins Relation to Subscriber:Self Name:Chelsea Higgins Payer ID:[id number] (NAIC) Type:PPO Address: [place] [phone] [employer]EF[employer] ADMINISTRATORS Member Subscriber Plan / Payer ( fective 2022-Present) Name:Chelsea Higgins Relation to Subscriber:Self Name:Chelsea Higgins Payer ID:[id number] (NAIC) Type:PPO Address: [place] [phone] [employer] AD[employer]RAT[employer] Member Subscriber Plan / Payer (Ef fective 2022-Present) Name:Chelsea Higgins Relation to Subscriber:Self Name:Ronaldo Chelsea Payer ID:[id number] (NAIC) Type:PPO Address: [place] [phone] [employer]MINISTRAT[employer] ADMINISTRATORS Care Teams Soda Dialyzer Relationship Specialty Start Date End Date Isaiah Zhang MD PCP - General Internal Medicine 01/15/23 Additional Source Comments The information contained in this document represents components of the legal health record. It is not the complete legal health record.[facility]
== END 2025-02-11 12:48 | disposition home or self-care (01) ==
LOC: HO.HWS 12:38
PROVIDERS: Visit Provider Obstetrics & Gynecology
DX: N83.201 Unspecified ovarian cyst, right side (principal)
CPT/HCPCS: 99213

== ENCOUNTER 2025-03-08 11:16 | Outpatient (AMB) | payer OTHER, SELFPAY ==
--- OUTSIDE RECORDS SUMMARY | 2024-06-14 14:56 | XMS_ITS | Encounter Summary ---
Author Organization [facility] Address [address] [facility] [address] [place] [phone] Phone Care Team Providers Care Executive Sales Manager Name Role Phone Isaiah Zhang MD Primary Care Provider Unavailable Encounter Details Date Type Department Care Team (Late st Contact Info) Description 06/14/2024 3:56 PM EDT Hospital Encounter [facility] [address] [place] [phone] Jennifer Braun FNP [address] [place] [phone] [email or web address] Social History Tobacco Use Types Packs/Day [...] report originally createdby Christopher Leon. Jennifer Braun EMPLOYMENT PROGRAMS ANALYST IMG XR CHEST Final Resul t documented in this encounter Visit Diagnoses Not on filedocumented in this encounter Additional Health Concerns Infection Onset Date Last Indicated Resolved Time CoV-Risk 06/14/2024 06/14/2024 06/25/2024 1:21 AM EDT documented as of this encounter Care Teams Executive Sales Manager Relationship Specialty Start Date End Date Isaiah Zhang MD PCP - General Internal Medicine 01/15/23 documented as of this encounter Additional Source Comments The information contained in this document represents components of the legal health record. It is not the complete legal health record.[facility]
--- OUTSIDE RECORDS SUMMARY | 2025-03-04 23:59 | XMS_ITS | Continuity of Care Document ---
Author Organization [facility] Address [address] [place] [phone] Care Team Providers Care Metal Fabricator Name Role Phone Nettie RESTREPO, Susanna Villar Primary Care Physician Encounter [facility] Date(s): 02/02/25 - 03/04/[address] [address] Encounter Type: Triage Allergies, Adverse Reactions, Alerts Substance Criticality Severity Reaction Reaction Severity Status amoxicillin Hives Active Immunizations Given and Recorded Vaccine Date Status Refusal Reason SARS-CoV-2 (COVID-19) mRNA-1273 vaccine 02/01/21 R ecorded SARS-CoV-2 (COVID-19) mRNA-1273 vaccine 04/25/20 R ecorded SARS-CoV-2 (COVID-19) mRNA-1273 vaccine 03/28/20 R ecorded influenza virus vaccine, inactivated 01/17/21 Cristian rded hepatitis B pediatric vaccine 04/07/15 Recorded Medications busPIRone 15 mg oral tablet 1 tablet = 15 mg, By Mouth, 2 times a day, 0 Refills, Maintenance, 10/30/19 2:47:00 AM EDT Start Date: 10/30/19 Status: Ordered Medication Dispense Status: Completed Total Allowed Fills: 1 Fills Dispensed: 0 sertraline 100 mg oral tablet 2 tablet = 200 mg, By Mouth, Daily, 0 Refills, Maintenance, 10/30/19 2:46:00 AM EDT Start Date: 10/30/19 Status: Ordered Medication Dispense Status: Completed Total Allowed Fills: 1 Fills Dispensed: 0 Tri-Sprintec oral tablet 1 tablet, By Mouth, Daily, # 28 tablet, 0 Refills, Maintenance, 08/12/18 5:10:10 PM EDT, Tablet Start Date: 08/12/18 Status: Ordered Medication Dispense Status: Completed Quantity: 28.0 Unit: tablet Total Allowed Fills: 1 Fills Dispensed: 0 Problem List Condition Confirmation Course Effective Dates Status Health St atus Informant Anxiety Confirmed Active Galactorrhea Confirmed Active OCD (obsessive compulsive disorder) Confirmed Active Social History Social History Type Response Sexual Sexually involved in last 6 months: Yes. Tobacco Use: pt denies. Sex Female Sex Representation Female (finding) Patient Care team information Care Team Personnel Name: Caridad Javier RN Position: S RN Member Role: Primary Care Nurse Name: Davide Blackwood RN Position: [facility] RN Supv Member Role: Primary Care Nurse Name: Mary Jo Coe RN Position: [facility] Onco RN Member Role: Primary Care Nurse Name: Tova Trevino RN Position: [facility] SN RN Member Role: Primary Care Nurse Name: Susanna Sheffield MD Position: Reference Physician Member Role: PCP Address: [address] [place] [address] Telecom: Care Team Related Persons Name: PEACE ELDER Name: ADRIANNE ELDER Insurance Providers Guarantor name: RAMU ELDER Health Plan Information #: 1 Payer: BLUE BENEFIT BBA PPO Payer Identifier: FERNANDO Member Number: [id number] Group Number: [id number] Subscriber Identifier: NA Relationship to Subscriber: self Coverage Type: BLUE CROSS/BLUE SHIELD Coverage Verification Date: FERNANDO Telecom: FERNANDO Address:
--- NOTE | 2025-03-08 11:18 | AM.OFFVISNUR ---
Intake Visit Reasons: tdap Allergies amoxicillin Allergy (Verified 01/06/25 10:15) Hives Immunizations Boostrix Tdap 2.5 Lf unit-8 mcg-5 Lf/0.5 mL intramuscular syringe Performing Provider: Oksana Quevedo MD [facility] Administered by: Haley Newman CMA on 03/08/25 11:18 Dose Route Admin Location Dispensed Lot Number Expiration Date [facility] [place] Oncology Rn 0.5 mL IM Left Deltoid 0.5 mL [id number] 09/15/27 73727-995-89 [employer] Total Dispensed Waste 0.5 mL 0 % VIS Given Date VIS Provided VIS Publication Date 03/08/25 Single Vaccine 20 Eligibility Eligibility Date Funding Source Not [facility] Eligible 03/08/25 Private Assessment & Plan Assessment & Plan Orders: Orders TDaP Immunization Today Z23 - Encounter for immunization Coding
--- OUTSIDE RECORDS SUMMARY | 2025-03-08 19:06 | XMS_ITS | Clinical Summary ---
Author Organization [facility] Address [address] [phone] Phone Care Team Providers Care Home Designer Name Role Phone Isaiah Zhang MD Primary [...] topic Medical Devices Not on file Insurance [employer] ADMINISTRATORS [employer]MINISTRAT[employer] Member Subscriber Plan / Payer ( fective 2022-Present) Name:Chelsea Higgins Relation to Subscriber:Self Name:Chelsea Higgins Payer ID:[id number] (NAIC) Type:PPO Address: [place] [id number] [email or web address] BENEFITS ADMINISTRATORS [employer] BENEFITS ADMINISTRATORS [employer]ENEF[employer] ADMINISTRATORS [employer]MIN[employer]RATORS Care Teams Home Designer Relationship Specialty Start Date End Date Isaiah Zhang MD PCP - General Internal Medicine 01/15/23 Additional Source Comments The information contained in this document represents components of the legal health record. It is not the complete legal health record.[facility]
== END 2025-03-08 11:23 | disposition home or self-care (01) ==
LOC: HO.HMCH 11:16
PROVIDERS: Visit Provider Internal Medicine
DX: Z23 Encounter for immunization (principal)

== ENCOUNTER → 2025-03-08 11:16 | Outpatient (BNVA) | payer OTHER, SELFPAY | PROVIDERS: Visit Provider Internal Medicine | DX: Z23 Encounter for immunization (principal) | CPT/HCPCS: 90471; 90715 ==

== ENCOUNTER 2025-03-09 12:52 | Outpatient (REF) | payer OTHER, SELFPAY ==
[2025-03-10 05:19] LABS: HBS Num1 82.27 mIU/mL (0-7.99); HBc Num1 0.13 S/CO (0.00-0.79); HBsAGNum1 0.40 S/CO (0.00-0.99); Hepatitis B Surface Antigen Negative (Negative); ~Hepatitis B Surface Antibody REACTIVE (Nonreactive)
[2025-03-10 06:43] LABS: Rubeola IgG (Measles) >300.00 AU/mL
[2025-03-12 11:23] LABS: TS Negative Control Passed; TS Panel A 0; TS Panel B 0; TS Positive Control Passed; TSpotTB Negative (Negative)
== END 2025-03-09 12:53 | disposition home or self-care (01) ==
LOC: HO.LAB 12:52
PROVIDERS: PCP Internal Medicine; Visit Provider Internal Medicine
DX: Z01.84 Encounter for antibody response examination (principal); Z11.1 Encounter for screening for respiratory tuberculosis; Z23 Encounter for immunization
CPT/HCPCS: 36415; 86481; 86704; 86706; 86735; 86762; 86765; 86787; 87340

== ENCOUNTER 2025-03-11 11:07 | Outpatient (AMB) | payer OTHER, SELFPAY ==
--- NOTE | 2025-03-11 11:11 | A.OFFVIS_ITS ---
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 Corporate Safety Coordinator Required: No Allergies amoxicillin Allergy (Verified 03/11/25 11:16) Hives Medication List - Last Reconciled 03/11/25 by Fide Colilns LPN buspirone 30 mg PO DAILY clindamycin phosphate 1% 1 appl topical BID clobetasol 0.05% 1 appl topical BEDTIME 4 weeks naproxen 500 mg PO BID 30 days norgestrel-ethinyl estradiol 0.3-30 mg-mcg (Robyn (28)) 1 tab PO DAILY sertraline mg PO valacyclovir 500 mg PO DAILY Is last menstrual period known: Yes Last menstrual period: 02/26/25 Post menopausal: No Patient : No Do you need a note to return to daycare/school/sports/work: No HPI Comments Details: Patient is a premenopausal woman presenting for annual examination. 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 She denies any contraindications to control such as: migraines with aura, history of DVT or pulmonary emboli, high blood pressure, liver disease, thrombolic disorders, Lupus, +MYRIAM, breast cancer, or smoking. Currently is sexually active. She denies vaginal itching or irritation. STI screening offered; she accepts. Requests refill for valacyclovir daily use. She tries to eat healthy and stays active with exercise. Last pap smear 2020, negative. [facility] Medical History Encounter for well woman exam with routine gynecological exam History of galactorrhea Ovarian cyst Surgical History History of laparoscopy History of removal of ovarian cyst [place] teeth removed Hx of cholecystectomy Hx of appendectomy Family History Maternal Grandmother No problems noted. 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 Current occupational exposures/hazards: No Cognitive needs: No Hearing needs: No Vision needs: Yes (glasses) Female Reproductive History Menstrual Age of Menarche: 14 Duration of menses: 6-7 days Date of last menstrual period: 02/26/25 control method: pills Total pregnancies: 0 Date of last pap smear: 07/19/20 History of abnormal pap smear: No History of STI: Yes (HSV 1) Review of Systems Const All systems reviewed & are unremarkable except as noted in HPI and below Reports as per HPI Eyes Reports no additional complaints ENT Reports no additional complaints Card Reports no additional complaints Resp Reports no additional complaints GI Reports as per HPI and Reports no additional complaints Reports as per HPI Musc Reports no additional complaints Skin/Breast Reports as per HPI Neuro Reports no additional complaints Psych Reports no additional complaints Endo Reports no additional complaints Kyle/Lymph Reports no additional complaints Aller/Immun Reports no additional complaints Physical Exam Vital Signs: Last Vital Signs BP 118/66 03/11/25 11:13 BMI result Body Mass Index 25.3 Const General: cooperative, healthy appearing, no acute distress, well developed and alert Orientation/consciousness: patient oriented x3 HEENT Head: Yes normal to inspection Eyes General: appearance normal, both eyes and all related structures Neck Neck: Yes normal visual inspection Thyroid: Thyroid normal Chest Chest palpation & inspection: normal inspection of the chest and other (no puckering, dimpling, peau de orange, retraction, discharge, masses) Breast/axilla inspection: normal inspection of the breasts Breast/axilla palpation: normal palpation of the breasts Resp Effort & Inspection: normal respiratory effort GI Inspection: Yes normal to inspection Palpation (GI): Soft to palpation Rectal Exam - Female: deferred General: Yes bladder normal to palpation External Female Exam: normal external appearance and normal appearance of the urethra Speculum Exam - Vagina: normal appearance of the vagina, normal palpation and normal vaginal discharge Speculum Exam - Cervix: normal appearance of the cervix, normal palpation and Other cervical findings present (Bled slightly from ectopy region) Bimanual exam- vagina & uterus: normal bimanual exam, normal palpation, uterine size normal, bladder normal to palpation, normal palpation and non-tender Bimanual Exam- Adnexa, other: no masses Skin General skin exam: no rashes or lesions noted Rashes: no rashes Neuro General: patient oriented x3 Cognition (Neuro): normal cognition Extrem General: Yes normal to inspection Psych Attitude: cooperative Thought process: Normal thought process present Assessment & Plan Assessment & Plan (1) Encounter for well woman exam with routine gynecological exam: Code(s): Z01.419 - Encounter for gynecological examination (general) (routine) without abnormal findings Category: Medical Plan Discussed: Current recommendations for pap smears per ASCCP guidelines. Pap obtained. Breast awareness and periodic breast exams. Maintain a healthy lifestyle including a well balanced diet and routine exercise. control hormone use warnings: go to ER if and loss of vision, blindness, severe headache, chest pain or difficulty breathing, severe abdominal pain, or any pain or swelling in an extremity. Patient verbalizes understanding and agrees to the plan of care. She was given opportunity to ask questions and all questions were answered to the best of my ability. RTO in one year for annual head filter press tender examination. This note is constructed using voice recognition software. While every effort h as been made to ensure accuracy, warp spinner errors may have been included. Orders: Orders Pap Smear Today Z01.419 - Encounter for gynecological examination (general) (routine) without abnormal findings CT NG by PCR Vag/Cerv Today Z11.3 - Encounter for screening for infections with a predominantly sexual mode of transmission Bacterial Vaginosis Panel Today Z11.3 - Encounter for screening for infections with a predominantly sexual mode of transmission Medications: New norgestrel-ethinyl estradiol 0.3-30 mg-mcg (Robyn (28)) 1 tab PO DAILY 168 tabs 1RF valacyclovir 500 mg PO DAILY 90 tabs 3RF 90 days Coding Level of Care Code Est Pt Prev Care 18-39y(59[address]) Diagnoses Encounter for well woman exam with routine gynecological exam Z01.419
[2025-03-11 11:13] VITALS: BP 118/66; BMI 25.3
== END 2025-03-11 12:14 | disposition home or self-care (01) ==
LOC: HO.HWS 11:08
PROVIDERS: Visit Provider Advanced Practice Midwife
DX: Z01.419 Encounter for gynecological examination (general) (routine) without abnormal findings (principal)
CPT/HCPCS: 99395; 99459

== ENCOUNTER 2025-03-11 11:07 | Outpatient (REF) | payer OTHER, SELFPAY ==
[2025-03-12 10:06] LABS: Bacterial Vaginosis PCR NEGATIVE (Negative); Candida Group PCR NOT DETECTED (Not Detect); Candida glab krusei PCR NOT DETECTED (Not Detect); Trichomonas vaginalis PCR NOT DETECTED (Not Detect)
[2025-03-12 10:36] LABS: CT PCR NOT DETECTED (Not Detect.); NG PCR NOT DETECTED (Not Detect.)
== END 2025-03-11 11:08 | disposition home or self-care (01) ==
LOC: HO.LNP 11:07
PROVIDERS: Visit Provider Advanced Practice Midwife
DX: Z01.419 Encounter for gynecological examination (general) (routine) without abnormal findings (principal); Z20.2 Contact with and (suspected) exposure to infections with a predominantly sexual mode of transmission
CPT/HCPCS: 81515; 87491; 87591; 88175

== ENCOUNTER 2025-03-17 09:07 | Outpatient (AMB) | payer OTHER, SELFPAY ==
--- OUTSIDE RECORDS SUMMARY | 2024-06-14 14:56 | XMS_ITS | Encounter Summary ---
Author Organization [facility] Address [address] [facility] [address] [place] [phone] Phone Care Team Providers Care Swimmer Name Role Phone Isaiah Zhang MD Primary Care Provider Unavailable Encounter Details Date Type Department Care Team (Late st Contact Info) Description 06/14/2024 3:56 PM EDT Hospital Encounter [facility] [address] [place] [phone] Jennifer Braun FNP [address] [place] [phone] [email or web address] Social History Tobacco Use Types Packs/Day Years Used Date Smoking Tobacco: Never Assessed Smokeless Tobacco: Never Comments:vaping Education Answer Date Recorded Are you interested in more education? Not on ramya e 01/15/2023 Are you concerned about learning? Not on file 01/15/2023 No 01/15/2023 No 01/15/2023 Digital Access Answer Date Recorded No 01/15/2023 No 01/15/2023 Reliable internet access at home? Not on file 01/15/2023 Device with a working camera? Not on file Comments Unknown Sex and Gender Information Value Date Recorded Sex Assigned at Not on file Legal Sex Female 11:14 AM EDT Gender Identity Not on file Sexual Orientation Not on file documented as of this encounter Plan of Treatment Not on file documented as of this encounter Procedures Procedure Name Priority Date/Time Associated Diagnosis Comments XR CHEST PA AND LATERAL 2 VIEWS Urgent/patient waiting 06/14/2024 4:02 PM EDT Viral upper respiratory tract infection with cough documented in this encounter Results * XR CHEST PA AND LATERAL 2 VIEWS (06/14/2024 4:02 PM EDT) Anatomical Region Laterality Modality Chest Computed Radiogr aphy 06/14/2024 4:04 PM EDT Impressions 06/14/2024 4:27 PM EDT No acute abnormality. ATTESTATION: Hyun Raines as teaching physician, have reviewed the images for this case and if necessary edited the report originally created by Christopher Leon. Narrative 06/14/2024 4:27 PM EDT XR CHEST PA AND LATERAL 2 VIEWS Referring clinician's provided indication for this examination in Epic: Cough; sob, chest tightness, hemoptysis COMPARISON: None FINDINGS: Devices/Tubes/Lines: None. Lungs: The lungs are clear. No focal consolidation or pulmonary edema. Pleura: No pleural effusion or pneumothorax. Heart/Mediastinum: Normal heart and mediastinum. Bones/Soft Tissues: No significant skeletal abnormality. Procedure Note Hyun Bliss MD, JUDE - 06/14/2024 XR CHEST PA AND LATERAL 2 VIEWS Referring clinician's provided indication for this examination in Epic:Cough; sob, chest tightness, hemoptysis COMPARISON: None FINDINGS: Devices/Tubes/Lines: None. Lungs: The lungs are clear. No focal consolidation or pulmonary edema. Pleura: No pleural effusion or pneumothorax. Heart/Mediastinum: Normal heart and mediastinum. Bones/Soft Tissues: No significant skeletal abnormality. IMPRESSION: No acute abnormality. ATTESTATION: Hyun Raines as teaching physician, have reviewed theimages for this case and if necessary edited the report originally createdby Christopher Leon. Jennifer Braun EARTH MOVING TECHNICIAN IMG XR CHEST Final Resul t documented in this encounter Visit Diagnoses Not on filedocumented in this encounter Additional Health Concerns Infection Onset Date Last Indicated Resolved Time CoV-Risk 06/14/2024 06/14/2024 06/25/2024 1:21 AM EDT documented as of this encounter Care Teams Swimmer Relationship Specialty Start Date End Date Isaiah Zhang MD PCP - General Internal Medicine 01/15/23 documented as of this encounter Additional Source Comments The information contained in this document represents components of the legal health record. It is not the complete legal health record.[facility]
--- NOTE | 2025-03-17 09:11 | A.OFFPC_ITS ---
Vital Signs 03/17/25 09:13 Height 5 ft 5 in Weight 150 lb BMI 25.0 BP 102/64 Blood Pressure Location Rt brachial Position Sitting Respiration 12 Pulse 100 Pulse Source Pulse Oximeter Temp 98.1 F Temp Source Oral Pulse Oximetry (%) 98 Oxygen Delivery Method Room Air Intake Visit Reasons: CPE Intake Note: Physical Commercial Collections Specialist Required: No Allergies amoxicillin Allergy (Verified 03/17/25 09:12) Hives Tobacco use date assessed: 03/17/25 Dental Screening Dental Screen Date: 03/17/25 Did you have a dental visit in the last 12 months?: Yes Did you have a dental problem in the last 6 months where you did not have access to dental care?: No Was dental information given to patient?: Patient has dentist HPI CPE HPI Details Pt is a 29 y/o female who presents today for a cpe. She normally follows with Dr. Sheffield. 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 HEENT: Started feeling sick Saturday. She states that her significant other has COVID in his symptoms started . She took a rapid test yesterday and it was negative. She states that she has a sore throat and cold-like symptoms. She also has had a slight cough. No fever, shortness a breath, nausea or vomiting. Using OTC analgesics. States that it feels like a cold. Psych: Sees Dr. Lackey for management of OCD, anxiety. Currently well controlled. 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 1. Little interest or pleasure in doing things: more than half the days 2. Feeling down, depressed, or hopeless: more than half the days 3. Trouble falling or staying asleep, or sleeping too much: more than half the days 4. Feeling tired or having little energy: more than half the days 5. Poor appetite or overeating: more than half the days 6. Feeling bad about yourself - or that you are a failure or have let yourself or your family down: not at all 7. Trouble concentrating on things, such as reading the newspaper or watching television: not at all 8. Moving or speaking so slowly that other people could have noticed. Or the opposite - being so fidgety or restless that you have been moving around a lot more than usual: not at all 9. Thoughts that you would be better off or of hurting yourself in some way: not at all Total score: 10 Depression Screening Interpretation: Positive Depression Screening Done: Yes 95926 - PHQ-9 Billing: Yes Source: Developed by Drs. Anjel Fuentes, Franca Newman, Jordan Narvaez and colleagues, with an educational phoebe from [employer] (formerly [employer]). Thrive Questionnaire Date Thrive assessed: 03/17/25 I am a: Patient What is your living situation today?: I have a steady place to live Within the past 12 months, did the food you bought not last and you didn't have the money to get more?: Never true Within the past 12 months, did you worry whether your food would run out before you got money to buy more?: Never true Do you have trouble paying for medicines?: No Do you have trouble getting transportation to medical appointments?: No Do you have trouble paying your heating and electricity bill?: No Do you have trouble taking care of your child, family member or friend?: No Do you have trouble with day-to-day activities such as bathing, preparing meals, shopping, managing finances, etc.?: No Are you currently unemployed and looking for a job?: No Are you interested in more education?: No Please select the resources that you would like help with: None Currently or been in a relationship where the following occur: No concerns reported THRIVE Score: 0 AUDIT C Alcohol Use Questionnaire (AUDIT-C) 1. How often do you have a drink containing alcohol?: Monthly or less 2. How many drinks containing alcohol do you have on a typical day when you are drinking?: 1 or 2 3. How often do you have six or more drinks on one occasion?: Never Total Score: 1 HENNY-7 AMB Questionnaire HENNY-7 Date HENNY - 7 assessed: 03/17/25 Feeling nervous, anxious, or on edge: 0 = Not at all Not being able to stop or control worryin = Not at all Worrying too much about different things: 1 = Several days Trouble relaxin = Not at all Being so restless that it is hard to sit still: 0 = Not at all Becoming easily annoyed or irritable: 0 = Not at all Feeling afraid as if something awful might happen: 0 = Not at all Total HENNY-7 score (0-4 normal; 5-9 mild; 10-14 moderate; 15-21 severe): 1 Source: Developed by Drs. Anjel Fuentes, Franca Newman, Jordan Narvaez and colleagues, with an educational phoebe from [employer] (formerly [employer]). HENNY-7 Assessment Billing HENNY-7 Assessment Tool: HENNY-7 Assessment 95716 Physical exam (Primary Care) Vital Signs: Last Vital Signs Temp 98.1 F 03/17/25 09:13 Pulse 100 03/17/25 09:13 Resp 12 03/17/25 09:13 BP 102/64 03/17/25 09:13 Pulse Ox 98 03/17/25 09:13 Oxygen Delivery Method Room Air 03/17/25 09:13 BMI result Body Mass Index 25.0 Tobacco/Smoking Status: Tobacco use Status Tobacco use date assessed 03/17/25 03/17/25 09:17 Patient Tobacco Use Status Never used Tobacco 03/17/25 09:17 e-Cigarette/Vaping Use Never Used 03/17/25 09:17 PHQ-9: PHQ-9 Score PHQ-9: Total score 10 03/17/25 09:25 Depression Screening Interpretation: Positive Thrive Assessment: Date of Thrive Assessment Date Thrive assessed 03/17/25 03/17/25 09:17 Currently or been in a relationship where the following occur: No concerns reported Const Orientation/consciousness: patient oriented x3 HENMT Other: TM on right noted to have a small air-fluid level. TM on left WNL. Ears: hearing grossly normal bilaterally General nose exam: No nasal polyps present Face and sinus: Yes sinuses nontender Mouth: Normal oral and palatal mucosa present Eyes Pupils: Equal, round and reactive pupils present EOM: EOMs intact bilaterally Neck Neck: Yes full ROM and Yes no lymphadenopathy Thyroid: Thyroid normal Chest Chest palpation & inspection: normal inspection of the chest Resp Auscultation: clear to auscultation bilaterally Cardio Rate: regular rate Rhythm: regular rhythm Heart sounds: S1 normal heart sound present and S2 normal heart sound present Peripheral pulses: Peripheral pulses 2+ throughout GI Other: Soft, nontender Auscultation: normal bowel sounds Rectal Exam - Female: deferred General: Yes no CVA tenderness Back/Spine/Pelvis Other: Nontender Back: no CVA tenderness Skin General skin exam: no rashes or lesions noted Neuro General: patient oriented x3, gait normal, CN's II-XI intact bilaterally and deep tendon reflexes 2+ bilaterally Cranial nerves: Yes Equal, round and reactive pupils present Motor exam (neuro): 5/5 motor strength present throughout Sensory Exam: double simultaneous stimulation for sensation normal Coordination: [id number] test normal and Romberg test negative Extrem General: Yes normal to inspection and Yes full ROM Psych Affect: normal affect Attitude: cooperative Thought process: Normal thought process present Thought content: Normal thought content present Insight: Good insight present (Psych) Judgement: Good judgement present (Psych) Coding Level of Care Code Est Pt Prev Care 18-39y(74990) Diagnoses Routine general medical examination at a health care facility Z00.00 Viral URI with cough J06.9 Additional Codes HENNY-7 Assessment Billing - HENNY-7 Assessment Tool: HENNY-7 Assessment 84174 ([id number]) PHQ-9 - 57057 - PHQ-9 Billing: Yes ([id number]) Assessment & Plan Assessment & Plan (1) Routine general medical examination at a health care facility: Code(s): Z00.00 - Encounter for general adult medical examination without abnormal findings Plan: Health maintenance reviewed Labs reviewed Immunizations up-to-date (2) Viral URI with cough: Code(s): J06.9 - Acute upper respiratory infection, unspecified Category: Medical Plan: COVID and flu testing ordered. Advised to continue to rest, hydrate and supportive measures. Follow up if no improvement or if anything worsens or changes. Patient understands and agrees with the plan. Orders: Orders SARS-CoV2/FLU/RSV Today J06.9 - Acute upper respiratory infection, unspecified, R09.89 - Other specified symptoms and signs involving the circulatory and respiratory systems
[2025-03-17 09:13] VITALS: BP 102/64; PULSE 100; RESP 12; TEMP 36.7; O2SAT 98; BMI 25.0
--- OUTSIDE RECORDS SUMMARY | 2025-03-17 10:02 | XMS_ITS | Clinical Summary ---
Author Organization [facility] Address [address] [phone] Phone Care Team Providers Care Outlet Manager Name Role Phone Isaiah Zhang MD [...] topic Medical Devices Not on file Insurance [employer] Member Subscriber Plan / Payer ( fective 2022-Present) Name:Chelsea Higgins Relation to Subscriber:Self Name:Chelsea Higgins Payer ID:[id number] (NAIC) Type:PPO Address: [address] [address] [id number] [employer]MIN[employer]AT[employer] Care Teams Outlet Manager Relationship Specialty Start Date End Date Isaiah Zhang MD PCP - General Internal Medicine 01/15/23 Additional Source Comments The information contained in this document represents components of the legal health record. It is not the complete legal health record.[facility]
== END 2025-03-17 11:58 | disposition home or self-care (01) ==
LOC: HO.HMCFM 09:08
PROVIDERS: PCP Internal Medicine; Visit Provider Physician Assistant
DX: Z00.00 Encounter for general adult medical examination without abnormal findings (principal); J06.9 Acute upper respiratory infection, unspecified

== ENCOUNTER 2025-03-17 09:07 | Outpatient (REF) | payer OTHER, SELFPAY ==
[2025-03-17 12:25] LABS: Resp Syncy Virus RNA Qual PCR NEGATIVE (Negative); SARS COV2 PCR INHOUSE POSITIVE (Negative)
== END 2025-03-17 09:08 | disposition home or self-care (01) ==
LOC: HO.LNP 09:07
PROVIDERS: Visit Provider Physician Assistant
DX: R09.89 Other specified symptoms and signs involving the circulatory and respiratory systems (principal); J06.9 Acute upper respiratory infection, unspecified
CPT/HCPCS: 87637; 96127